=== PATIENT | male | born 1970 | race Caucasian/White ===

== ENCOUNTER 2019-09-05 13:22 | Inpatient (IN) | payer MEDICAID ==
[~2019-09-05] VITALS: Ht 170.2 cm; Wt 49.0 kg
[2019-09-05 14:18] VITALS: BP_SYST 122
[2019-09-05] MEDS ORDERED: ONDANSETRON HCL 4 MG/2 ML VIAL IVP ONE ×2 (15:30→17:15)
[2019-09-05] MEDS ORDERED: MORPHINE 4 MG/ML INJ. SYRINGE IVP ONE ×2 (15:30→17:15)
[2019-09-05 15:59] LABS: BASOPHILS % (AUTO) 0.5 % (0.0-2.0); EOSINOPHILS # (AUTO) 0.1 K/uL (0.0-0.4); EOSINOPHILS % (AUTO) 1.3 % (0.0-4.0); HEMATOCRIT 43.5 % (36-54); HEMOGLOBIN 14.7 g/dL (14.0-18.0); LYMPHOCYTES # (AUTO) 1.1 K/uL (1.0-5.5); LYMPHOCYTES % (AUTO) 13.1 % (20.5-51.5); MEAN CORPUSCULAR HEMOGLOBIN 28 pg (27-31); MEAN CORPUSCULAR HGB CONC 34 % (32-36); MEAN CORPUSCULAR VOLUME 84 fL (79.0-98.0); MONOCYTES # (AUTO) 0.4 K/uL (0.0-1.0); MONOCYTES % (AUTO) 4.4 % (1.7-9.3); NEUTROPHILS % (AUTO) 80.7 % (40.0-70.0); PLATELET COUNT (AUTO) 241 K/uL (130-430); RED BLOOD CELL COUNT(AUTO) 5.19 MIL/uL (4.2-6.2); RED CELL DISTRIBUTION WIDTH 14.7 % (9.0-15.0); WHITE BLOOD COUNT (AUTO) 8.7 K/uL (4.8-10.8)
[2019-09-05 16:15] LABS: CREATININE 0.87 mg/dL (0.55-1.30); POTASSIUM 3.9 mmol/L (3.5-5.1)
[2019-09-05 16:17] LABS: INR 1.1 (0.80-1.20); PROTHROMBIN TIME 10.8 SECS (9.5-12.5)
[2019-09-05 16:22] LABS: ALBUMIN 3.9 g/dL (3.4-4.8); TOTAL BILIRUBIN 0.5 mg/dL (0.0-1.0)
--- NOTE | 2019-09-05 17:00 | NUR ---
EKG performed at by [facility]. Physician given copy of EKG for review.
--- NOTE | 2019-09-05 17:00 | NUR ---
20 gauge angiocath placed to R AC. Use of asceptic technique. Opsite placed over site. Blood return noted. Blood for lab drawn from site. Flushed with 10 cc of normal saline. No evidence of infiltration noted. Patient tolerated well.
--- NOTE | 2019-09-05 17:04 | NUR ---
Patient to ER bed 03 to gown for evaluation. Side rails up.
--- NOTE | 2019-09-05 17:10 | NUR ---
PT CAME FOR INGUINAL HERNIA, L GROIN SWELLING PAIN 10/10
--- NOTE | 2019-09-05 18:35 | NUR ---
PT AU CATHETER REPLACED WITH NEW CATHETER.
--- NOTE | 2019-09-05 18:35 | NUR ---
REPORT TO JUN SCHNEIDER
[2019-09-05] MEDS ORDERED: LR 1,000 ML IV.SOLN IV ONE (19:25)
[2019-09-05] MEDS ORDERED: BUPIVACAINE /EPINEPHRINE/PF 0.25% 30 ML VIAL INJ ONE (19:25)
[2019-09-05] MEDS ORDERED: fentaNYL CITRATE/PF 100 MCG/2 ML AMP IVP ONE (19:25)
[2019-09-05] MEDS ORDERED: MIDAZOLAM HCL 5 MG/5 ML VIAL IVP ONE (19:25)
[2019-09-05] MEDS ORDERED: PROPOFOL 200MG/ 20ML VIAL (DIPRIVAN) IV ONE (19:25)
[2019-09-05] MEDS ORDERED: CEFAZOLIN 2 GM IVPB PREMIX 50 ML IV ONE (19:25)
[2019-09-05] MEDS ORDERED: GLYCOPYRROLATE 0.2 MG/ML VIAL IJ ONE (19:25)
[2019-09-05] MEDS ORDERED: ROCURONIUM BROMIDE 10 MG/ML (ZEMURON) IV ONE (19:25)
[2019-09-05] MEDS ORDERED: NEOSTIGMINE METHYLSULFATE 1 MG/ML, 10 ML VIAL IVP ONE (19:25)
[2019-09-05] MEDS ORDERED: SEVOFLURANE 15 MIN GAS INH ONE (19:25)
--- NOTE | 2019-09-05 19:30 | NUR ---
Lisandro, son, states he cannot find the medication list and will be bringing another copy of the medication list tomorrow morning.
--- NOTE | 2019-09-05 19:35 | NUR ---
family left contact information: Myah Garsia, daughter in law Stephanie, daughter
[2019-09-05 20:09] LABS: BILIRUBIN,URINE NEGATIVE (NEGATIVE); BLOOD, URINE 3+ (NEGATIVE); CLARITY/URINE TURBID (CLEAR); COLOR,URINE BROWN (YELLOW); GLUCOSE,URINE NEGATIVE (NEGATIVE); KETONES,URINE TRACE (NEGATIVE); LEUKOCYTE ESTERASE ,URINE TRACE (NEGATIVE); NITRITE, URINE POSITIVE (NEGATIVE); PROTEIN URINE 3+ (NEGATIVE)
--- NOTE | 2019-09-05 20:19 | NUR ---
Dr. Petit at bedside.
[2019-09-05 20:20] LABS: BACTERIA,URINE FEW /HPF (None Seen); RBC,URINE >100 /HPF (0-3); WBC,URINE 20-50 /HPF (0-3)
[2019-09-05 20:21] LABS: MUCUS,URINE None Seen /LPF (None Seen); URINE AMORPHOUS URATE 2+ /HPF (None Seen)
[2019-09-05] MEDS ORDERED: D5LR 1,000 ML IV ONE (20:30)
[2019-09-05] MEDS ORDERED: ONDANSETRON HCL 4 MG/2 ML VIAL IVP PRN (20:30)
[2019-09-05] MEDS ORDERED: ACETAMINOPHEN 325 MG TABLET PO PRN (20:45)
[2019-09-05] MEDS ORDERED: MORPHINE 4 MG/ML INJ. SYRINGE IVP PRN (20:45)
[2019-09-05] MEDS ORDERED: ACETAMINOPHEN 650 MG SUPP.RECT RC PRN (20:45)
--- NOTE | 2019-09-05 20:58 | NUR ---
ADMIT NOTE Received pt from ER to the floor with a diagnosis of incarcerated hernia. Admission process initiated. patient oriented to pain management, safety and call light-pt is aphasic.
--- NOTE | 2019-09-05 21:00 | NUR ---
Patient will be admitted to care of RN. Admitted to Tele unit. Will go to room 109A. Belongings list completed. Complete and up to date summary report printed. SBAR report to be given at bedside with opportunity for questions.
[2019-09-05 21:14] VITALS: BP_SYST 149
--- NOTE | 2019-09-05 21:15 | NUR ---
INITIAL NOTE PATIENT IS LAYING IN BED AND STABLE. NO S/S OF RESPIRATORY DISTRESS NOTED. PATIENT WAS UNSUCCESSFUL IN DEMONSTRATING USAGE OF CALL LIGHT AT THIS TIME. WILL CONTINUE TO MONITOR. PLAN OF CARE WAS DISCUSSED WITH PATIENT AT THIS TIME. PATIENT IS REORIENTED AT THIS TIME. BED IS LOCKED, ALARMED, AND AT THE LOWEST POSITION. FALL, SAFETY, ASPIRATION, AND RESPIRATORY PRECAUTIONS WILL BE IN PLACE THROUGHOUT THE SHIFT.
--- NOTE | 2019-09-05 21:25 | NUR ---
Received a call from Dr Petit: Dr Petit wants to know the result of 2nd troponin result, and ordered to repeat EKG stat. To call him of results.
--- NOTE | 2019-09-05 21:42 | NUR ---
Call placed to Dr. Petit: Relayed result of 2nd troponin which is negative, and also result of second EKG. No new order.
[2019-09-05] MEDS ORDERED: PIPERACILLIN/TAZO 3.375 GM in NS 50 ML IV SCH (22:00)
--- NOTE | 2019-09-05 22:21 | NUR ---
PAGE DR. ESPINOZA FOR CONSULT, SPOKE
[2019-09-05] MEDS ORDERED: PIPERACILLIN/TAZOBACTAM 3.375 GM/VIAL (ZOSYN) IV ONE (22:37)
--- NOTE | 2019-09-05 22:50 | NUR ---
DR. ESPINOZA CALL BACK- REPORT TO CT AP-RESULT AND CBC, CMP. MD WILL SEE PT TOMORROW, NO ORDER.
--- NOTE | 2019-09-05 22:56 | NUR ---
CONSULT CALLED FOR DR. SAAVEDRA, SPOKE TO
--- NOTE | 2019-09-05 23:15 | NUR ---
ROUNDING PATIENT IS LAYING IN BED AND WATCHING TV. PATIENT IS STABLE. NO S/S OF RESPIRATORY DISTRESS NOTED. CALL LIGHT IN REACH. BED IS LOCKED, ALARMED, AND AT THE LOWEST POSITION. WILL CONTINUE TO MONITOR.
[2019-09-06 00:05] VITALS: BP_SYST 121
--- NOTE | 2019-09-06 03:01 | NUR ---
ROUNDING PATIENT IS SLEEPING IN BED AND STABLE. NO S/S OF RESPIRATORY DISTRESS NOTED. CALL LIGHT IN REACH. BED IS LOCKED, ALARMED, AND AT THE LOWEST POSITION. WILL CONTINUE TO MONITOR.
--- NOTE | 2019-09-06 05:01 | NUR ---
ROUNDING PATIENT IS SLEEPING IN BED. NO S/S OF RESPIRATORY DISTRESS. CALL LIGHT IN REACH. BED IS LOCKED, ALARMED, AND AT THE LOWEST POSITION. WILL CONTINUE TO MONITOR.
--- NOTE | 2019-09-06 06:30 | NUR ---
CLOSING NOTES PATIENT IS STABLE AND LAYING IN BED. NO S/S OF RESPIRATORY DISTRESS NOTED. CALL LIGHT IN REACH. BED IS LOCKED, ALARMED, AND AT THE LOWEST POSITION. FALL, SAFETY, ASPIRATION, AND RESPIRATORY PRECAUTIONS HAS BEEN IN PLACE THROUGHOUT THE SHIFT. WILL CONTINUE TO MONITOR UNTIL REPORT IS GIVEN TO AM NURSE BY BEDSIDE.
--- NOTE | 2019-09-06 07:00 | NUR ---
FAMILY MEMBER CALLED REGARDING MEDICATION RECONC
--- NOTE | 2019-09-06 07:03 | NUR ---
Nutrition Update Jeovanny Scale 14 noted. Pt admitted for Incarcerated Hernia Diet: NPO BMI: 16.9 kg/m2 RD to follow per nutrition care standards.
[2019-09-06] MEDS ORDERED: LIP40 PO (07:07)
[2019-09-06] MEDS ORDERED: LISI-600 PO (07:07)
[2019-09-06] MEDS ORDERED: MIRT15TA7 PO (07:07)
--- NOTE | 2019-09-06 07:35 | NUR ---
OPENING NOTE Patient resting in the bed with eyes closed. No acute distress. Skin warm and dry to touch. IV intact to RAC, no redness, no swelling, no drainage. On D5 LR at 100ml/hr, infusing well. F/C intact, drain gravity with sarath urine. Safety measure maintained. Call light within reached. Bed locked in low position, side rails up, bed alarm on. Will continue to monitor.
[2019-09-06 08:21] LABS: ANION GAP 4 (5-15); CALCIUM 8.3 mg/dL (8.4-11.0); CHLORIDE 103 mmol/L (98-107); CREATININE 0.86 mg/dL (0.55-1.30); GLUCOSE 101 mg/dL (70-99); POTASSIUM 3.8 mmol/L (3.5-5.1); SODIUM SERUM 138 mmol/L (136-145); UREA NITROGEN, BLOOD 21 mg/dL (8-21)
[2019-09-06 08:28] LABS: BASOPHILS % (AUTO) 0.8 % (0.0-2.0); EOSINOPHILS # (AUTO) 0.3 K/uL (0.0-0.4); HEMATOCRIT 40.6 % (36-54); HEMOGLOBIN 13.7 g/dL (14.0-18.0); LYMPHOCYTES # (AUTO) 1.3 K/uL (1.0-5.5); LYMPHOCYTES % (AUTO) 21.2 % (20.5-51.5); MEAN CORPUSCULAR HEMOGLOBIN 28 pg (27-31); MEAN CORPUSCULAR HGB CONC 34 % (32-36); MEAN CORPUSCULAR VOLUME 84 fL (79.0-98.0); MONOCYTES # (AUTO) 0.3 K/uL (0.0-1.0); MONOCYTES % (AUTO) 5.2 % (1.7-9.3); NEUTROPHILS # (AUTO) 4.1 K/uL (1.8-7.7); NEUTROPHILS % (AUTO) 67.8 % (40.0-70.0); PLATELET COUNT (AUTO) 187 K/uL (130-430); RED BLOOD CELL COUNT(AUTO) 4.83 MIL/uL (4.2-6.2); RED CELL DISTRIBUTION WIDTH 14.9 % (9.0-15.0)
[2019-09-06 08:32] LABS: GFR AFRICAN AMERICAN 121 mL/min (>90)
--- NOTE | 2019-09-06 08:33 | NUR ---
2D ECHO DOING AT BEDSIDE AT THIS TIME.
[2019-09-06 08:35] LABS: WHITE BLOOD COUNT (AUTO) 6.1 K/uL (4.8-10.8)
[2019-09-06 08:36] LABS: ALANINE AMINOTRANSFERASE 16 U/L (12-78); ALBUMIN 3.3 g/dL (3.4-4.8); ASPARTATE AMINOTRANSFERASE 7 U/L (10-37); FREE T4 (FREE THYROXINE) 1.2 ng/dl (0.8-1.5); THYROID STIMULATING HORMONE 1.74 uIu/mL (0.36-3.74); TOTAL BILIRUBIN 0.6 mg/dL (0.0-1.0)
[2019-09-06 08:55] LABS: CHOLESTEROL 93 mg/dL (<200); HDL CHOLESTEROL 34 mg/dL (>45); LDL CHOLESTEROL 54 mg/dL (<100); TRIGLYCERIDES 44 mg/dL (30-150)
--- NOTE | 2019-09-06 09:56 | NUR ---
SEEN AND EXAMINED BY SHARRI BECKWITH Informed to Dr. Cuba, patient on NPO status IVF was ordered 1L only. Per Bereket will order IVF.
[2019-09-06 10:00] LABS: ERYTHROCYTE SEDIMENTATION RATE 17 MM/HR (0-15)
--- NOTE | 2019-09-06 10:48 | NUR ---
SEEN AND EXAMINED BY PRETTY BALDWIN Informed to Dr. Mattson, Dr. Cuba (marine pilot) clear the patient for surgery. Per Dr. Mattson, the patient need the surgery but no set up the time yet.
[2019-09-06] MEDS: D5/0.45 NS 1,000 ML IV SCH (10:54)
[2019-09-06 11:11] VITALS: BP_SYST 134
[2019-09-06 12:19] VITALS: BP_SYST 128
--- NOTE | 2019-09-06 12:25 | NUR ---
ROUND Patient resting in the bed. No acute distress. IV intact, IVF infusing well. Safety measure maintained. Call light within reached. Bed locked in low position, side rails up, bed alarm on. Continue to monitor.
--- NOTE | 2019-09-06 12:48 | NUR ---
PHYSICAL THERAPY ORDER HAS BEEN RECEIVED AND THE CHART REVIEWED. RN AND CHART NOTES INDICATE POSSIBLE SURGICAL PROCEDURE. EVALUATION WILL BE HELD UNTIL TOMORROW TO DETERMINE IF THE PATIENT WILL HAVE SURGERY. PLAN: FOLLOW UP IN THE MORNING.
--- NOTE | 2019-09-06 14:02 | NUR ---
SEEN AND EXAMINED BY YOLANDA GLASER WITH ORDER RECEIVED.
--- NOTE | 2019-09-06 15:09 | NUR ---
SS NOTE/ATTEMPT: DOORMAKER phoned pt's son Lisandro Hayes @ [phone] and left a message for a call back. Addendum: 09/06/19 at 1610 by Minor Ramos DOORMAKER Collateral: DOORMAKER spoke with daughter Amada Hayes @ [phone]. Per Amada pt was originally at a SNF in [place] but decided to move him back home in August and changed his [facility] to [facility]. Per dtr, pt had a stroke 5 years ago and became dependent with ADL's after that. Pt currently lives with daughter, and son in a one-salvatore home with 2 steps to get to the front door. Pt utilizes a hospital bed and a wheelchair as his DME. Per dtr, pt is unable to qualify for SSI or IHSS due to the loss of his green card. Dtr prefers for pt to go back to a SNF closer to [place]; SNF list and Outpt Clinic list provided. SS will remain available when needed.
[2019-09-06 16:00] VITALS: BP_SYST 128
--- NOTE | 2019-09-06 16:39 | NUR ---
CECILIA CALLED PATIENT'S DAUGHTER EMMANUEL AT [phone] AND LEFT MESSAGE TO RETURN THE CALL AT [phone]
--- NOTE | 2019-09-06 16:45 | NUR ---
CHG BATH DONE
--- NOTE | 2019-09-06 17:17 | NUR ---
RECEIVED THE CALL FROM PATIENT'S [id number], JU Glasgow, surgeon told the patient's daughter (EMMANUEL) will do the surgery around 5-6pm. However, the son is the one will give consent and on the way to hospital, will be arrived 30-60min. Communicated with charge nurse, Brook and waited the son.
--- NOTE | 2019-09-06 17:50 | NUR ---
PATIENT'S SON (CHEIKH) CAME Explained the consent needs to be signed before surgery, verbally understanding. The son will sign the consent before the surgery.
--- NOTE | 2019-09-06 18:50 | NUR ---
PATIENT LEFT FOR SURGERY VIA BED IN STABLE CONDITION.
--- NOTE | 2019-09-06 19:00 | NUR ---
REPORT RECEIVED FROM WYATT ERWIN. PATIENT IS NOT AT BEDSIDE AT THIS TIME. REPORT RECEIVED BY WYATT ERWIN.
[2019-09-06] MEDS ORDERED: POLYMYXIN 500,000/BACIT.10,000 UNITS in NS IRR 1 L IR ONE (19:42)
[2019-09-06] MEDS ORDERED: ONDANSETRON HCL 4 MG/2 ML VIAL IVP PRN (20:00)
[2019-09-06] MEDS ORDERED: fentaNYL CITRATE/PF 100 MCG/2 ML AMP IVP PRN ×2 (20:00)
[2019-09-06] MEDS ORDERED: BUPIVACAINE LIPOSOME/PF 266 MG/20 ML VIAL INFIL ONE (20:11)
[2019-09-06 22:34] VITALS: BP_SYST 128
[2019-09-06] MEDS ORDERED: fentaNYL CITRATE/PF 100 MCG/2 ML AMP ONE (23:00)
--- NOTE | 2019-09-06 23:11 | NUR ---
INITIAL/PATIENT ARRIVED ON THE FLOOR REPORT GIVEN BY WYATT SOTOMAYOR. PATIENT IS STABLE. NO S/S OF RESPIRATORY DISTRESS NOTED. FAMILY IS BY BEDSIDE. PLAN OF CARE DISCUSSED WITH FAMILY AND PATIENT AT THIS TIME. PATIENT UNSUCCESSFULLY DEMONSTRATES USAGE OF CALL LIGHT AT THIS TIME. WILL CONTINUE TO MONITOR FREQUENTLY. PATIENT VERBALIZES NO PAIN. FALL, SAFETY, ASPIRATION, AND RESPIRATORY PRECAUTIONS WILL BE IN PLACE THROUGHOUT THE SHIFT.
[2019-09-07] MEDS: D5/0.45 NS 1,000 ML IV SCH ×3 (00:20→18:17)
[2019-09-07 00:31] VITALS: BP_SYST 128
--- NOTE | 2019-09-07 01:02 | NUR ---
ROUNDING PATIENT IS SLEEPING IN BED. PATIENT IS STABLE. NO S/S OF RESPIRATORY DISTRESS NOTED. CALL LIGHT IN REACH. BED IS LOCKED, ALARMED, AND AT THE LOWEST POSITION. WILL CONTINUE TO MONITOR.
--- NOTE | 2019-09-07 02:58 | NUR ---
ROUNDING PATIENT IS SLEEPING IN BED. NO S/S OF RESPIRATORY DISTRESS NOTED. CALL LIGHT IN REACH. BED IS LOCKED, ALARMED, AND AT THE LOWEST POSITION. WILL CONTINUE TO MONITOR.
--- NOTE | 2019-09-07 05:00 | NUR ---
INCENTIVE SPIROMETER PATIENT EDUCATED ON INCENTIVE SPIROMETER AT THIS TIME. PATIENT WAS ABLE TO USE IT 10 TIMES. PATIENT IS CONFUSED. WILL CONTINUE TO EDUCATE THROUGHOUT THE SHIFT. Addendum: 09/07/19 at 0634 by Trixie Barney RN PATIENT IS MORE AWAKE AND ALERT FOR EDUCATION ON INCENTIVE SPIROMETER. HOWEVER, EDUCATION WAS NOT SUCCESSFUL. WILL CONTINUE TO EDUCATE THROUGHOUT THE SHIFT.
--- NOTE | 2019-09-07 06:31 | NUR ---
CLOSING NOTES RE-EDUCATED PATIENT ON THE INCENTIVE SPIROMETER. PATIENT UNABLE TO DEMONSTRATE USAGE WITHOUT ASSIST. ASSISTED PATIENT TO USE 10 TIMES. PATIENT IS OTHERWISE STABLE AND IN BED. NO S/S OF RESPIRATORY DISTRESS NOTED. CALL LIGHT IN REACH. BED IS LOCKED, ALARMED, AND AT THE LOWEST POSITION. FALL, SAFETY, ASPIRATION, AND RESPIRATORY PRECAUTIONS HAS BEEN PLACED THROUGHOUT THE SHIFT. WILL CONTINUE TO MONITOR UNTIL REPORT IS GIVEN TO AM NURSE BY BEDSIDE.
--- NOTE | 2019-09-07 07:24 | NUR ---
PHYSICAL THERAPY: AWAITING NEW MD ORDER TO START PHYSICAL THERAPY SINCE PATIENT HAD SURGERY YESTERDAY.
--- NOTE | 2019-09-07 07:30 | NUR ---
AM ROUNDS: RECEIVED PATIENT LYING ON THE BED.O2 2L/NC.IV FLUIDS RUNNING AT RIGHT AC,CLEAN AND DRY. MID ABDOMINAL DRESSING INTACT.AU IN PLACE,KALI URINE. CALL LIGHT WITH IN REACH. BED LOCKED AT LOWEST POSITION. NO DISTRESS.
[2019-09-07 08:33] VITALS: BP_SYST 116
[2019-09-07] MEDS: SENNOSIDES/DOCUSATE SODIUM 1 TAB TABLET(SENOKOT-S) PO SCH ×2 (08:34→21:56)
[2019-09-07] MEDS: MIRTAZAPINE 15 MG TABLET PO SCH (08:34)
[2019-09-07] MEDS: ATORVASTATIN 20 MG TABLET PO SCH (08:34)
[2019-09-07] MEDS: LISINOPRIL 20 MG TABLET PO SCH (08:35)
[2019-09-07 12:30] VITALS: BP_SYST 120
--- NOTE | 2019-09-07 12:30 | NUR ---
RN ROUNDS: FULL LIQUID DIET SERVED.ATE HALF OF THE TRAY. WELL TOLERATED. WITH MINIMAL ASSISTANCE. NO DISTRESS.
--- NOTE | 2019-09-07 14:00 | NUR ---
RN ROUNDS: PATIENT RESTING. HAD SOME FULL LIQUID DIET. ASPIRATION PRECAUTION RENDERED. STABLE.
--- NOTE | 2019-09-07 15:13 | NUR ---
Nutrition Assessment (short note d/t high patient load) A - RD reviewed pertinent nutrition-related info via EMR (physician notes/nursing notes/labs/meds/nursing care trends/care activity). Admission Dx: Incarcerated hernia PMH: CVA, L-sided paralysis per physician notes Current Diet Order/Nutrition Support: Full liquid x0 days Ht: 67"/5'7" Wt: 108#/49 kg IBW: 148#/67 kg %IBW: 73% UBW: N/A %UBW: N/A BMI: 16.9 kg/m2 Pertinent Medical Info: Pt is POD 1 s/p L herniorrhaphy 09/06/19 per EMR Subjective Info: Pt seen high risk d/t BMI less than 18.5 kg/m2. Pt was seen resting in bed, +aphasic w/ breakfast tray less than 50% eaten -- 100% of pudding eaten, 25% of cream of wheat, and 100% of Ensure Enlive ONS. No family present at bedside. Per EMR, PO intake average of 25% x2 meals. Pt is not yet meeting optimal nutritional needs. ESTIMATED NUTRITIONAL NEEDS CALORIES/DAY: 9002-2799 kcal/day (30-35 kcal/kg Adj IBW for surgical healing) PROTEIN/DAY: 65-81 gm/day (1.2-1.5 gm/kg Adj IBW for surgical healing) FLUID/DAY: 1.6-1.9 L/day (1 ml/kcal/day for maintenance) D - Increased nutritional needs related to metabolic demands as evidenced by estimated nutritional requirements for surgical healing. I - Recommend full liquid diet w/ Ensure Enlive TID and Sundar BID (ONS w/ modular provides 1230 kcal/day, 65 gm protein/day) M - Monitor advancement of diet, appetite, and PO intakes w/ goal of pt meeting at least 75% of estimated nutritional needs, labs trending WNL, normal GI function, and skin integrity/wt maintenance E - High risk; F/U within 2-3 days Addendum: 09/07/19 at [address] CORRECTION: Current Diet Order/Nutrition Support: Full liquid, nectar thick liquid x0 days * Recommend full liquid, nectar thick liquid diet w/ Ensure Enlive TID and Sundar BID (ONS w/ modular provides 1230 kcal/day, 65 gm protein/day) LP, RD
--- NOTE | 2019-09-07 15:20 | NUR ---
Dietitian Recommendations * Recommend full liquid diet w/ Ensure Enlive TID and Sundar BID (ONS w/ modular provides 1230 kcal/day, 65 gm protein/day) LP, RD Please refer to Nutrition Assessment for details. Addendum: 09/07/19 at [address] CORRECTION: * Recommend full liquid, nectar thick liquid diet w/ Ensure Enlive TID and Sundar BID (ONS w/ modular provides 1230 kcal/day, 65 gm protein/day) LP, RD
--- NOTE | 2019-09-07 16:00 | NUR ---
RN ROUNDS: RESTING. NO COMPLAINED MADE. ABDOMEN DRESSING INTACT.
[2019-09-07 17:37] VITALS: BP_SYST 122
--- NOTE | 2019-09-07 18:39 | NUR ---
END OF SHIFT: DR ESPINOZA CAME AND SAW PATIENT IN THE ROOM. NO NEW ORDERS MADE. PATIENT HAD A GOOD APPETITE THIS EVENING. TOLERATED FULL LIQUID DIET.ABDOMEN DRESSING INTACT.AU IN PLACE. CALL LIGHT WITH IN REACH. BED LOCKED AT LOWEST POSITION. DENIES ANY PAIN. CONTINUE TO MONITOR.
--- NOTE | 2019-09-07 19:30 | NUR ---
Opening Note Received patient resting in bed, awake, alert and aphasic. IVF infusing via IV on RAC, abdominal surgical dressing site is CDI. Farr catheter drainage bag to gravity. Bed is locked in lowest position, bed alarm on and call light w/in reach.
[2019-09-07 20:00] VITALS: BP_SYST 110
--- NOTE | 2019-09-07 21:56 | NUR ---
Medication Due medication given, Senokot. Medication was crushed and mixed with applesauce and patient he also had a drink of thickened water. Patient followed directions and swallowed w/out difficulty.
--- NOTE | 2019-09-07 22:20 | NUR ---
IV alarm Assessed IV alarm and patient pulled on gauze and removed IV. Catheter tip visualized and no active bleeding noted. Will start new IV.
[2019-09-07] MEDS: MORPHINE 2 MG/ML INJ. SYRINGE IVP PRN (23:03)
--- NOTE | 2019-09-07 23:09 | NUR ---
IV PLACEMENT: New IV # 22 gauge angiocath placed to RFA . Use of asceptic technique, opsite placed over site. Blood return noted and flushed with 10 cc of normal saline. Patient tolerated.
--- NOTE | 2019-09-07 23:11 | NUR ---
Pain medication Patient moaning, showing signs of pain. When asked if has pain he said yes, moderate pain to abdomen. Administered morphine for moderate pain as ordered. Will monitor.
--- NOTE | 2019-09-08 00:10 | NUR ---
Resting Patient is resting, w/ eyes closed. Nonlabored breathing and no s/sx of distress. Patient is not moaning or grimacing. IVF infusing well. Safety precautions in place.
[2019-09-08 00:39] VITALS: BP_SYST 110
--- NOTE | 2019-09-08 02:15 | NUR ---
RN rounds Patient is resting, w/ eyes closed. Nonlabored breathing and no s/sx of distress. IVF infusing well. Safety precautions in place and call light w/in reach.
--- NOTE | 2019-09-08 04:30 | NUR ---
RN rounds Patient is sleeping. Symmetrical rise and fall of chest, nonlabored breathing. IVF infusing well. Safety precautions in place and call light w/in reach.
[2019-09-08 08:00] VITALS: BP_SYST 113
[2019-09-08] MEDS: ATORVASTATIN 20 MG TABLET PO SCH (10:34)
[2019-09-08] MEDS: SENNOSIDES/DOCUSATE SODIUM 1 TAB TABLET(SENOKOT-S) PO SCH ×2 (10:34→21:00)
[2019-09-08] MEDS: MIRTAZAPINE 15 MG TABLET PO SCH (10:34)
[2019-09-08] MEDS: LISINOPRIL 20 MG TABLET PO SCH (10:35)
[2019-09-08 11:21] VITALS: BP_SYST 112
[2019-09-08] MEDS: D5/0.45 NS 1,000 ML IV SCH (13:31)
[2019-09-08 15:34] VITALS: BP_SYST 122
[2019-09-08] MEDS ORDERED: METOPROLOL TARTRATE 25 MG TABLET PO ONE (17:30)
--- NOTE | 2019-09-08 18:12 | NUR ---
S.T. SWALLOW EVAL SWALLOW EVAL COMPLETED. PT PRESENTS W/ MOD-SEV OROPHARYNGEAL DYSPHAGIA W/ IMPAIRED BOLUS MANIPULATION, DELAYED SWALLOW, AND COUGHING WITH AND WITHOUT P.O. PT IS AT HIGH RISK FOR ASPIRATION. REC: NPO. VFSS TOMORROW. NURSE KIRILL NOTIFIED. G8996 CM G8997 CM G8998 CM NOMS LEVEL 2
--- NOTE | 2019-09-08 19:30 | NUR ---
Opening Note Received patient resting in bed, awake, alert. No s/sx of distress. IVF infusing via IV on RAC, abdominal surgical dressing site is CDI. Farr catheter drainage bag to gravity. Bed is locked in lowest position, bed alarm on and call light w/in reach.
[2019-09-08 20:00] VITALS: BP_SYST 120
[2019-09-08] MEDS: METOPROLOL TARTRATE 25 MG TABLET PO SCH (21:00)
--- NOTE | 2019-09-08 21:37 | NUR ---
Paged Dr. Mattson Page Dr. Mattson to update and inform patient is NPO due to failed swallow eval.
[2019-09-08] MEDS: POLYETHYLENE GLYCOL 3350, 17 GM/ POWD.PACK PO SCH (21:56)
[2019-09-08] MEDS ORDERED: SODIUM PHOSPHATE,MONO-DIBASIC 133 ML ENEMA RC ONE (22:00)
--- NOTE | 2019-09-08 23:40 | NUR ---
Luciana Enema Explained procedure to patient and positioned to left side down, patient nodded head yes. Patient tolerated.
[2019-09-08 23:57] VITALS: BP_SYST 118
--- NOTE | 2019-09-09 00:25 | NUR ---
Elevated Heart Rate Called and notified Dr. Cuba that patient's heart rate has increased and sustaining in the 140's, highest was 163. Patient has been ordered NPO due to failed swallow eval. He provided medication order for Lopressor 5mg IVP once now and scheduled Q12hr.
[2019-09-09] MEDS ORDERED: METOPROLOL TARTRATE 5 MG/5 ML VIAL IVP ONE (00:30)
--- NOTE | 2019-09-09 00:37 | NUR ---
Lopressor IVP Administered Lopressor IVP as ordered, patient tolerating.
--- NOTE | 2019-09-09 01:10 | NUR ---
Patient care Patient had bowel movement, solid brown formed stool. He was provided with bed bath, mesfin-care and linen change.
--- NOTE | 2019-09-09 02:10 | NUR ---
RN rounds Patient is awake, he reports he wants to be changed, he had another bowel movement. Nurse social media assistant provided mesfin-care.
[2019-09-09] MEDS: MORPHINE 2 MG/ML INJ. SYRINGE IVP PRN (04:26)
[2019-09-09 07:22] LABS: BASOPHILS % (AUTO) 0.2 % (0.0-2.0); EOSINOPHILS # (AUTO) 0.1 K/uL (0.0-0.4); EOSINOPHILS % (AUTO) 0.5 % (0.0-4.0); HEMATOCRIT 33.7 % (36-54); HEMOGLOBIN 11.4 g/dL (14.0-18.0); LYMPHOCYTES # (AUTO) 1.2 K/uL (1.0-5.5); LYMPHOCYTES % (AUTO) 11.6 % (20.5-51.5); MEAN CORPUSCULAR HEMOGLOBIN 28 pg (27-31); MEAN CORPUSCULAR HGB CONC 34 % (32-36); MEAN CORPUSCULAR VOLUME 84 fL (79.0-98.0); MONOCYTES # (AUTO) 0.3 K/uL (0.0-1.0); MONOCYTES % (AUTO) 3.2 % (1.7-9.3); NEUTROPHILS # (AUTO) 9.1 K/uL (1.8-7.7); NEUTROPHILS % (AUTO) 84.5 % (40.0-70.0); PLATELET COUNT (AUTO) 222 K/uL (130-430); RED BLOOD CELL COUNT(AUTO) 4.03 MIL/uL (4.2-6.2); RED CELL DISTRIBUTION WIDTH 15.6 % (9.0-15.0); WHITE BLOOD COUNT (AUTO) 10.8 K/uL (4.8-10.8)
[2019-09-09 07:57] LABS: ALBUMIN 2.5 g/dL (3.4-4.8); CALCIUM 7.9 mg/dL (8.4-11.0); CREATININE 0.72 mg/dL (0.55-1.30); POTASSIUM 3.4 mmol/L (3.5-5.1); TOTAL BILIRUBIN 0.6 mg/dL (0.0-1.0)
[2019-09-09 08:00] VITALS: BP_SYST 96
[2019-09-09] MEDS: SENNOSIDES/DOCUSATE SODIUM 1 TAB TABLET(SENOKOT-S) PO SCH ×2 (09:00→21:00)
[2019-09-09] MEDS: MIRTAZAPINE 15 MG TABLET PO SCH (09:00)
[2019-09-09] MEDS: METOPROLOL TARTRATE 25 MG TABLET PO SCH ×2 (09:00→21:00)
[2019-09-09] MEDS: METOPROLOL TARTRATE 5 MG/5 ML VIAL IVP SCH ×2 (09:00→22:22)
[2019-09-09] MEDS: ATORVASTATIN 20 MG TABLET PO SCH (09:00)
[2019-09-09] MEDS: POLYETHYLENE GLYCOL 3350, 17 GM/ POWD.PACK PO SCH (09:00)
[2019-09-09 10:12] VITALS: BP_SYST 118
[2019-09-09] MEDS ORDERED: FAMOTIDINE 20 MG TABLET PO ONE (10:30)
[2019-09-09] MEDS ORDERED: POTASSIUM CHLORIDE 20 MEQ/PKT PACKET PO ONE (10:30)
--- NOTE | 2019-09-09 10:30 | NUR ---
[facility] CALLED TO INFORM PATIENT IS SCHEDUALED FOR VIDEO STUDY AROUND 13:30 - 14:00. patient daughter EMMANUEL [phone] WAS NOTIFIED AT 10:30.
[2019-09-09] MEDS ORDERED: ASPIRIN 81 MG TABLET(ECOTRIN) PO ONE (10:45)
--- NOTE | 2019-09-09 12:17 | NUR ---
Discharge Planning: DCP faxed patient referral to [facility], [facility], [facility], [facility], [facility] DCP to follow up. Addendum: 09/09/19 at 1516 by Jackie Stark DP [facility]:No beds available [facility]:can not take patient age and IV meds a issue [facility]:No beds available [facility]: [facility]:DCP lm for admissions
[2019-09-09 12:50] VITALS: BP_SYST 96
[2019-09-09] MEDS ORDERED: POTASSIUM CHLORIDE 40 MEQ, LIDOCAINE JECT 2% PF 100 MG 50 MG in NS 250 ML IV ONE (13:00)
[2019-09-09] MEDS ORDERED: BARIUM SULFATE 135 ML SUSP.RECON (E-Z-HD) PO ONE (13:21)
[2019-09-09] MEDS: D5LR 1,000 ML IV SCH ×2 (14:39→23:00)
--- NOTE | 2019-09-09 15:00 | NUR ---
S.T. VIDEOFLUOROSCOPIC SWALLOW STUDY (VFSS) VFSS COMPLETED. PT PRESENTS W/ MOD ORAL AND MOD-SEV PHARYNGEAL DYSPHAGIA W/ DECREASED COORDINATION FOR BOLUS MANIPULATION, POSTERIOR BOLUS LEAKAGE, MOD-SEV PHARYNGEAL RETENTION (VALLECULAR, PYRIFORM SINUS, AND PHARYNGEAL WALL). ASPIRATION NOTED ON THIN LIQUIDS. PT WAS VERY IMPULSIVE AND DID NOT FOLLOW COMMANDS. REC: PUREE DIET. NECTAR THICK LIQUIDS. FOLLOW SAFE SWALLOW GUIDELINES POSTED AT BEDSIDE. SLOW EATING. SMALL BITES/SIPS. PT'S DTR IN AGREEMENT W/ RESULTS AND REC. NURSE JOVITA NOTIFIED. G8996 CK G8997 CK G8998 CK NOMS LEVEL 4
[2019-09-09 16:49] VITALS: BP_SYST 109
[2019-09-09 20:00] VITALS: BP_SYST 98
--- NOTE | 2019-09-09 20:00 | NUR ---
CECILY.PT,S AU CATHETER D/CD PT GIVEN URINAL TO VOID . PT DEED COMFORAble . pt for passible discharge tommorrow . on sinus rthym .
[2019-09-09] MEDS: FAMOTIDINE 20 MG TABLET PO SCH (22:22)
[2019-09-10] VITALS: BP_SYST 112; BP_SYST 192
--- NOTE | 2019-09-10 | NUR ---
pt confortable . pt sleeping .vital sign stable . pt continue on iv d5lr at 100cc/hr .
--- NOTE | 2019-09-10 05:00 | NUR ---
pt stable . vitable sign stable . abdomen with glen . no c/o pain . iv infusing well .pt for possible discharge today.
--- NOTE | 2019-09-10 07:30 | NUR ---
OPENING NOTE PT RESTING IN BED. CHEST RISE AND FALL NOTED. NO ACUTE DISTRESS ORDERED. IV INTACT AND PATENT. NO SIGNS OF INFILTRATION. FLUIDS RUNNING ORDERED PER MD. TOLERATING WELL. FALL AND ASPIRATION PRECAUTIONS IN PLACE. ALL NEEDS MET. UPDATED PT ON CARE PLAN. CALL LIGHT IN REACH. CONTINUE TO MONITOR.
[2019-09-10 08:00] VITALS: BP_SYST 125
[2019-09-10] MEDS: POLYETHYLENE GLYCOL 3350, 17 GM/ POWD.PACK PO SCH (09:00)
[2019-09-10] MEDS: METOPROLOL TARTRATE 5 MG/5 ML VIAL IVP SCH (09:00)
[2019-09-10] MEDS: SENNOSIDES/DOCUSATE SODIUM 1 TAB TABLET(SENOKOT-S) PO SCH ×2 (09:00→22:15)
[2019-09-10] MEDS: D5LR 1,000 ML IV SCH (09:00)
[2019-09-10] MEDS: ASPIRIN 81 MG TABLET(ECOTRIN) PO SCH (09:40)
[2019-09-10] MEDS: MIRTAZAPINE 15 MG TABLET PO SCH (09:41)
[2019-09-10] MEDS: METOPROLOL TARTRATE 25 MG TABLET PO SCH ×2 (09:41→22:15)
[2019-09-10] MEDS: FAMOTIDINE 20 MG TABLET PO SCH ×2 (09:41→22:15)
[2019-09-10] MEDS: ATORVASTATIN 20 MG TABLET PO SCH (09:41)
--- NOTE | 2019-09-10 09:41 | NUR ---
ROUTINE MEDS MEDS ADMINISTERED ORDERED PER MD. TOLERATED WELL. EDUCATION GIVEN. NO ACUTE DISTRESS NOTED. FALL AND ASPIRATION PRECAUTIONS IN PLACE. ALL NEEDS MET. CALL LIGHT IN REACH. CONTINUE TO MONITOR.
--- NOTE | 2019-09-10 10:00 | NUR ---
SEEN AND EXAMINED BY REPORTED TO MD PATIENT IS NOW ON PUREE DIET AND ABLE TO TAKE MEDS. WILL D/C CYNTHIA GOINS
[2019-09-10 12:38] VITALS: BP_SYST 124
--- NOTE | 2019-09-10 13:00 | NUR ---
NOTE INCONTINENT CARE PROVIDED, RUDY WELL. REPOSITIONED FOR COMFORT. ALL NEEDS ANTICIPATED AND MET. CALL LIGHT IN REACH. CONT TO MONITOR
--- NOTE | 2019-09-10 15:00 | NUR ---
SEEN AND EXAMINED BY AT BEDSIDE REPORTED TO MD, PATIENT VOIDED DURING SHIFT BUT HAS A LOW PO FLUID INTAKE MD WILL CHANGE IVF ORDERS
[2019-09-10] MEDS ORDERED: PIPERACILLIN/TAZO 3.375/DEX-IS 50 ML IV ONE (15:15)
[2019-09-10] MEDS ORDERED: POTASSIUM CHLORIDE 40 MEQ, LIDOCAINE JECT 2% PF 100 MG 50 MG in NS 250 ML IV ONE (15:15)
--- NOTE | 2019-09-10 16:30 | NUR ---
SPOKE TO PHARMACY INQUIRIED ABOUT 1515 ZOSYN DOSE, PER PHARMACY, MEDICATION NOT READY YET. WILL BE MIXED AND BROUGHT OUT. AWAITING ARRIVAL.
[2019-09-10 16:55] VITALS: BP_SYST 126
--- NOTE | 2019-09-10 17:00 | NUR ---
PT HAD BM. INCONTINENCE AND PERINEAL CARE PROVIDED. LINENS AND GOWN CHANGED. REPOSITIONED PT WITH PILLOWS. HOB ELEVATED. SET UP FOR DINNER.
--- NOTE | 2019-09-10 17:29 | NUR ---
Nutrition F/U A - RD reviewed pertinent nutrition-related info via EMR (physician notes/nursing notes/labs/meds/nursing care trends/care activity). Admission Dx: Incarcerated hernia PMH: CVA, L-sided paralysis per physician notes Current Diet Order/Nutrition Support: Pureed, nectar thick liquids x1 days Ht: 67"/5'7" Wt: 108#/49 kg IBW: 148#/67 kg %IBW: 73% UBW: N/A %UBW: N/A BMI: 16.9 kg/m2 Pertinent Medical Info: Pt is POD 4 s/p L herniorrhaphy 09/06/19 per EMR Subjective Info: Pt was seen resting in bed, +non-verbal, but was able to nod yes or no to simple questions. Pt reported lack of appetite. No family present at bedside. Pt had a ST VFSS completed 09/09/19; ST rec for puree diet, nectar thick liquids. Per EMR, PO intake average of 50% x4 meals. Pt is not yet meeting optimal nutritional needs. ESTIMATED NUTRITIONAL NEEDS CALORIES/DAY: 8936-0937 kcal/day (30-35 kcal/kg Adj IBW for surgical healing) PROTEIN/DAY: 65-81 gm/day (1.2-1.5 gm/kg Adj IBW for surgical healing) FLUID/DAY: 1.6-1.9 L/day (1 ml/kcal/day for maintenance) D - Increased nutritional needs related to metabolic demands as evidenced by estimated nutritional requirements for surgical healing. I - Recommend puree diet w/ Ensure Enlive TID and Sundar BID (ONS w/ modular provides 1230 kcal/day, 65 gm protein/day) M - Monitor advancement of diet, appetite, and PO intakes w/ goal of pt meeting at least 75% of estimated nutritional needs, labs trending WNL, normal GI function, and skin integrity/wt maintenance E - High risk; F/U within 2-3 days
--- NOTE | 2019-09-10 17:32 | NUR ---
Dietitian Recommendations * Recommend puree diet w/ Ensure Enlive TID and Sundar BID (ONS w/ modular provides 1230 kcal/day, 65 gm protein/day) LP, RD Please refer to Nutrition F/U for details.
--- NOTE | 2019-09-10 17:58 | NUR ---
ZOSYN ADMINISTERED. TOLERATED WELL. EDUCATION GIVEN. ZOSYN 1800 DOSE HELD DUE TO JUST ADMINISTERED EARLIER DOSE.
[2019-09-10] MEDS: PIPERACILLIN/TAZO 3.375/DEX-IS 50 ML IV SCH (18:00)
[2019-09-10] MEDS: LR 1,000 ML IV SCH (18:32)
--- NOTE | 2019-09-10 18:45 | NUR ---
CLOSING NOTE PATIENT IS AWAKE IN BED. STABLE. NO S/SX PAIN. NO ACUTE DISTRESS. NO SOB. RESPIRATION EVEN AND UNLABORED. SKIN WARM AND DRY TO TOUCH. IV INTACT AND PATENT. KEPT CLEAN AND DRY. BED IN LOW AND LOCKED POSITION. SIDERAIL UPX3. BED ALARM ON. ALL NEEDS MET. CONT CONTACT PRECAUTION. CALL LIGHT IN REACH. WILL ENDORSE TO ONCOMING SHIFT.
[2019-09-10 20:00] VITALS: BP_SYST 140
--- NOTE | 2019-09-10 21:00 | NUR ---
RNIA .PT HAS DAINA ON . PT VOIDING WELL . PT ON ST WITH NO ECTOPIC BEAT , PT HAS MDRO IN URINE .PT HAS 2 LITER. ON IV LR AT 75CC/HR . BP 170/87.MEDICATION GIVEN . ABDOMINAL STAPLE INTACT.
[2019-09-11] VITALS: BP_SYST 192
--- NOTE | 2019-09-11 02:15 | NUR ---
PT STARED THAT HE IS IN PAIN .BP162/118.PT GIVEN MORPHINE SULFATE 4MG IVP PT HEART RATE 150TO 170.WILL MONITOR PT,S HEART RATE ,
--- NOTE | 2019-09-11 03:40 | NUR ---
HEART RATE DOWN TO 115/MIN , BP168/118. CALLED ORDERED LOPRESSOR TO BE GIVEN . PT GIVEN PO LOPRESSOR . WILL CONTINUE TO MONITOR PT .
--- NOTE | 2019-09-11 03:52 | NUR ---
page dr. rosales, report to md pt blood pressure 173/120 and hr 124. md change pt medication lopressor 25mg bid to lopressor 50mg po bid. and give one dose now.
[2019-09-11] MEDS ORDERED: METOPROLOL TARTRATE 50 MG TABLET PO ONE (04:00)
[2019-09-11] MEDS ORDERED: METOPROLOL TARTRATE 50 MG TABLET ONE (04:14)
[2019-09-11] MEDS: PIPERACILLIN/TAZO 3.375/DEX-IS 50 ML IV SCH ×5 (06:47→23:23)
--- NOTE | 2019-09-11 07:36 | NUR ---
Opening Note received bedside SBAR report from assembler 1st shift RN, patient resting in bed, respirations even and unlabored, no acute distress noted, patient reports pain is controlled, educated patient on use of call light and asked to call for assistance, patient verbalized understanding, call light in reach, bed in low and locked position, bed alarm on.
[2019-09-11 08:00] VITALS: BP_SYST 148
[2019-09-11] MEDS: POLYETHYLENE GLYCOL 3350, 17 GM/ POWD.PACK PO SCH (08:26)
[2019-09-11] MEDS: SENNOSIDES/DOCUSATE SODIUM 1 TAB TABLET(SENOKOT-S) PO SCH ×2 (08:29→22:27)
[2019-09-11] MEDS: ATORVASTATIN 20 MG TABLET PO SCH (08:29)
[2019-09-11] MEDS: MIRTAZAPINE 15 MG TABLET PO SCH (08:30)
[2019-09-11] MEDS: ASPIRIN 81 MG TABLET(ECOTRIN) PO SCH (08:30)
[2019-09-11] MEDS: METOPROLOL TARTRATE 50 MG TABLET PO SCH ×2 (08:30→22:26)
[2019-09-11] MEDS: FAMOTIDINE 20 MG TABLET PO SCH ×2 (08:30→22:27)
[2019-09-11] MEDS: LR 1,000 ML IV SCH ×2 (08:31→18:30)
--- NOTE | 2019-09-11 09:45 | NUR ---
IV access IV to right forearm leaking, IV catheter removed, catheter intact, no bleeding, new IV catheter placed to left forearm, 22G, flushes easily with blood return, patient tolerated well.
[2019-09-11 11:26] VITALS: BP_SYST 138
--- NOTE | 2019-09-11 11:53 | NUR ---
Incentive Spirometer respiratory therapist at bedside educating patient on purpose and procedure for incentive spirometer use, patient unable to return demonstration, will reinforce education, patient resting in bed.
--- NOTE | 2019-09-11 14:04 | NUR ---
Physician Rounds Dr. Petit at bedside examining patient, Dr. Petit spoke with patients daughter Stephanie on telephone and asked her to come in during meal time to encourage patient to eat due to decreased PO intake, per Stephanie she will be in today.
[2019-09-11 15:43] VITALS: BP_SYST 134
--- NOTE | 2019-09-11 16:23 | NUR ---
RN Rounds patient resting in bed, respirations even and unlabored on room air, no acute distress noted, patient denies any pain, IV fluids infusing well, no redness or swelling noted at IV site.
--- NOTE | 2019-09-11 18:05 | NUR ---
RN Rounds Patient sitting up in bed eating dinner with assistance from daughter Stephanie, patient tolerating well, no acute distress noted.
--- NOTE | 2019-09-11 19:12 | NUR ---
Closing Note bedside SBAR report given to receiving RN, patient resting in bed, respirations even and unlabored on room air, no acute distress noted, patients daughter at bedside, educated patient on use of call light and asked to call for assistance, patient verbalized understanding, call light in reach, bed in low and locked position, bed alarm on, care endorsed to assembler 1st shift RN.
--- NOTE | 2019-09-11 21:00 | NUR ---
PT RECIEVED AWAKE AND ORIENTED X3 . VITAL SIGN STABLE . NO INFILTRATED OF IV . D51/2NS AT70/HR . PT HAVE INCISION LOWER ABDOMEN . PT VITAL SIGN STABLE . PT ASSISTED IN FEEDING PT HIS DESERT . PT ON SINUS RYTHM . WILL NONITOR PT .
--- NOTE | 2019-09-12 | NUR ---
PT AWAKE STILL .HAVE NO CHEST PAIN . NO C/O ABD PAIN . VS.STABLE .
--- NOTE | 2019-09-12 | NUR ---
PT,S VITAL SIGN STABLE . PT CONTINUE TO MONITOR PT VITAL SIGN . EVERY 4HRS.
--- NOTE | 2019-09-12 | NUR ---
V/S STABLE . PT ON SR . PT SLEEPING . PT TURNED AND REPOSITIONED .
[2019-09-12 02:27] VITALS: BP_SYST 112
--- NOTE | 2019-09-12 05:00 | NUR ---
PT HAD NO C/O CHEST PAIN . PT WILL BE MONITOR ON SINUS RYTHM .
[2019-09-12] MEDS: PIPERACILLIN/TAZO 3.375/DEX-IS 50 ML IV SCH ×3 (06:09→18:36)
[2019-09-12 06:37] LABS: CALCIUM 8.8 mg/dL (8.4-11.0); CREATININE 1.08 mg/dL (0.55-1.30); POTASSIUM 3.2 mmol/L (3.5-5.1)
[2019-09-12 06:46] LABS: BASOPHILS % (AUTO) 0.6 % (0.0-2.0); EOSINOPHILS # (AUTO) 0.4 K/uL (0.0-0.4); EOSINOPHILS % (AUTO) 4.5 % (0.0-4.0); HEMATOCRIT 29.6 % (36-54); HEMOGLOBIN 10.1 g/dL (14.0-18.0); LYMPHOCYTES # (AUTO) 1.7 K/uL (1.0-5.5); LYMPHOCYTES % (AUTO) 19.9 % (20.5-51.5); MEAN CORPUSCULAR HEMOGLOBIN 29 pg (27-31); MEAN CORPUSCULAR HGB CONC 34 % (32-36); MEAN CORPUSCULAR VOLUME 84 fL (79.0-98.0); MONOCYTES # (AUTO) 0.4 K/uL (0.0-1.0); NEUTROPHILS # (AUTO) 6.1 K/uL (1.8-7.7); PLATELET COUNT (AUTO) 221 K/uL (130-430); RED BLOOD CELL COUNT(AUTO) 3.51 MIL/uL (4.2-6.2); WHITE BLOOD COUNT (AUTO) 8.7 K/uL (4.8-10.8)
--- NOTE | 2019-09-12 07:10 | NUR ---
Received report and patient from [facility] shift nurse. Patient in no acute distress. Alert and oriented. No pain as stated by patient. Side rails x 3 up. Call light with in reach.
[2019-09-12] MEDS: METOPROLOL TARTRATE 50 MG TABLET PO SCH ×2 (09:00→21:26)
[2019-09-12] MEDS: SENNOSIDES/DOCUSATE SODIUM 1 TAB TABLET(SENOKOT-S) PO SCH ×2 (11:23→21:25)
[2019-09-12] MEDS: ATORVASTATIN 20 MG TABLET PO SCH (11:24)
[2019-09-12] MEDS: MIRTAZAPINE 15 MG TABLET PO SCH (11:28)
[2019-09-12] MEDS: FAMOTIDINE 20 MG TABLET PO SCH ×2 (11:28→21:25)
[2019-09-12] MEDS: POLYETHYLENE GLYCOL 3350, 17 GM/ POWD.PACK PO SCH (11:29)
[2019-09-12] MEDS: ASPIRIN 81 MG TABLET(ECOTRIN) PO SCH (11:29)
[2019-09-12 12:32] VITALS: BP_SYST 99
[2019-09-12] MEDS ORDERED: MILK OF MAGNESIA 30 ML UDC PO PRN (15:15)
[2019-09-12] MEDS ORDERED: MILK OF MAGNESIA 30 ML UDC PO ONE (15:15)
[2019-09-12] MEDS ORDERED: POTASSIUM CHLORIDE 40 MEQ, LIDOCAINE JECT 2% PF 100 MG 50 MG in NS 250 ML IV ONE (15:30)
[2019-09-12 16:51] VITALS: BP_SYST 101
[2019-09-12] MEDS: LR 1,000 ML IV SCH (18:37)
--- NOTE | 2019-09-12 19:10 | NUR ---
Gave report and patient to NOC shift nurse. Patient in no acute distress. Alert and oriented. No pain as stated by patient. Side rails x 3 up. Call light with in reach.
[2019-09-12 20:00] VITALS: BP_SYST 113
--- NOTE | 2019-09-12 21:00 | NUR ---
PT RECIEVED AWAKE ALERT AND ORIENTED X3 . SCOPE ON SINUS RYTHM .VITAL SIGN IS STABLE PT HAVE LOWER MID ABDOMINAL INCISION FROM HERNIA REPAIR . PT HAVE NO COMPLAIN OF PAIN .PT ON PUREE DIET .ON IV LR AT 75CC/HR PT Kwame AU HAS BEEN D/C . WILL MONITOR PT THROUGH THE NIGHT .
[2019-09-12] MEDS: POTASSIUM CHLORIDE 20 MEQ TAB.PRT.SR PO SCH (21:25)
[2019-09-13] MEDS: PIPERACILLIN/TAZO 3.375/DEX-IS 50 ML IV SCH ×4 (00:40→17:54)
[2019-09-13 02:14] VITALS: BP_SYST 101
--- NOTE | 2019-09-13 05:00 | NUR ---
PT MONITORED. ON SINUS RYTHM NO ECTOPIC BEATS . AM CARE GIVEN . WILL CONTINUE TO MONITOR PT . .
[2019-09-13 06:28] LABS: BASOPHILS % (AUTO) 0.6 % (0.0-2.0); EOSINOPHILS # (AUTO) 0.5 K/uL (0.0-0.4); EOSINOPHILS % (AUTO) 7.3 % (0.0-4.0); HEMATOCRIT 29.2 % (36-54); HEMOGLOBIN 10.1 g/dL (14.0-18.0); LYMPHOCYTES # (AUTO) 1.5 K/uL (1.0-5.5); LYMPHOCYTES % (AUTO) 21.5 % (20.5-51.5); MEAN CORPUSCULAR HEMOGLOBIN 29 pg (27-31); MEAN CORPUSCULAR HGB CONC 35 % (32-36); MEAN CORPUSCULAR VOLUME 84 fL (79.0-98.0); MONOCYTES # (AUTO) 0.3 K/uL (0.0-1.0); MONOCYTES % (AUTO) 4.7 % (1.7-9.3); NEUTROPHILS # (AUTO) 4.7 K/uL (1.8-7.7); NEUTROPHILS % (AUTO) 65.9 % (40.0-70.0); PLATELET COUNT (AUTO) 207 K/uL (130-430); RED BLOOD CELL COUNT(AUTO) 3.49 MIL/uL (4.2-6.2); RED CELL DISTRIBUTION WIDTH 15.2 % (9.0-15.0); WHITE BLOOD COUNT (AUTO) 7.1 K/uL (4.8-10.8)
[2019-09-13 06:29] LABS: CALCIUM 8.4 mg/dL (8.4-11.0); CREATININE 0.88 mg/dL (0.55-1.30); POTASSIUM 3.2 mmol/L (3.5-5.1)
--- NOTE | 2019-09-13 07:30 | NUR ---
OPENING NOTES: RECEIVED PATIENT FROM INSULATION WORKER NURSE. PATIENT IS AWAKE AND ALERT x3 SITTING UP IN BED. PATIENT DENIES ANY PAIN AT THE MOMENT. PATIENT IS TOLERATING OXYGEN AT ROOM AIR WITH NO SIGNS OF DISTRESS OR SHORTNESS OF BREATH NOTED. IV SITE IS PATENT WITH NO SIGNS OF INFILTRATION. PATIENT IN STABLE CONDITION. SAFETY, FALL, ASPIRATION, AND CONTACT PRECAUTIONS ARE IN PLACE. BED LOCKED IN LOWEST POSITION WITH CALL LIGHT IN REACH. WILL CONTINUE TO MONITOR PATIENT FOR ANY CHANGES.
[2019-09-13 08:07] VITALS: BP_SYST 117
[2019-09-13] MEDS: LR 1,000 ML IV SCH (09:11)
[2019-09-13] MEDS: POLYETHYLENE GLYCOL 3350, 17 GM/ POWD.PACK PO SCH (09:11)
[2019-09-13] MEDS: FAMOTIDINE 20 MG TABLET PO SCH ×2 (09:13→21:47)
[2019-09-13] MEDS: SENNOSIDES/DOCUSATE SODIUM 1 TAB TABLET(SENOKOT-S) PO SCH ×2 (09:13→21:49)
[2019-09-13] MEDS: POTASSIUM CHLORIDE 20 MEQ TAB.PRT.SR PO SCH ×2 (09:13→21:47)
[2019-09-13] MEDS: ASPIRIN 81 MG TABLET(ECOTRIN) PO SCH (09:13)
[2019-09-13] MEDS: METOPROLOL TARTRATE 50 MG TABLET PO SCH ×2 (09:13→21:48)
[2019-09-13] MEDS: MIRTAZAPINE 15 MG TABLET PO SCH (09:14)
[2019-09-13] MEDS: ATORVASTATIN 20 MG TABLET PO SCH (09:14)
--- NOTE | 2019-09-13 10:20 | NUR ---
RN ROUNDS: PATIENT IS AWAKE AND ALERT x2 LAYING DOWN IN BED. FAMILY AT BEDSIDE. PATIENT DENIES ANY PAIN AT THE MOMENT. NO SIGNS OF DISTRESS OR SHORTNESS OF BREATH NOTED. PATIENT IN STABLE CONDITION. WILL CONTINUE TO MONITOR PATIENT FOR ANY CHANGES.
--- NOTE | 2019-09-13 12:21 | NUR ---
RN ROUNDS: PATIENT IS ASLEEP LAYING DOWN IN BED. NO SIGNS OF DISTRESS OR SHORTNESS OF BREATH NOTED. FAMILY AT BEDSIDE. PATIENT IN STABLE CONDITION. WILL CONTINUE TO MONITOR PATIENT FOR ANY CHANGES.
[2019-09-13 12:43] VITALS: BP_SYST 104
--- NOTE | 2019-09-13 13:42 | NUR ---
PHYSICAL THERAPY CO-SIGN The Physical Therapy Progress Notes documented by Metal Tank Erector have been reviewed. Reviewed/Co-Signed by: Karlos Brooke, PT Documentation Done by: VANDANA JOINER PTA Addendum: 09/13/19 at 1345 by Karlos Brooke PT Amended: Links added.
--- NOTE | 2019-09-13 13:44 | NUR ---
PHYSICAL THERAPY CO-SIGN The Physical Therapy Progress Notes documented by Hot Metal Crane Operator have been reviewed. Reviewed/Co-Signed by: Karlos Brooke, PT Documentation Done by: VANDANA BASS PTA Addendum: 09/13/19 at 1345 by Karlos Brooke PT Amended: Links added.
--- NOTE | 2019-09-13 13:45 | NUR ---
PHYSICAL THERAPY CO-SIGN The Physical Therapy Progress Notes documented by Industrial Health And Safety Professor have been reviewed. Reviewed/Co-Signed by: Karlos Brooke, PT Documentation Done by: VANDANA BASS PTA Addendum: 09/13/19 at 1345 by Karlos Brooke PT Amended: Links added.
--- NOTE | 2019-09-13 14:35 | NUR ---
RN ROUNDS: PATIENT IS ASLEEP LAYING DOWN IN BED. FAMILY AT BEDSIDE. NO SIGNS OF DISTRESS OR SHORTNESS OF BREATH NOTED. PATIENT IN STABLE CONDITION. WILL CONTINUE TO MONITOR PATIENT FOR ANY CHANGES.
[2019-09-13] MEDS ORDERED: POLYETHYLENE GLYCOL 3350, 17 GM/ POWD.PACK PO ONE (16:30)
--- NOTE | 2019-09-13 16:32 | NUR ---
RN ROUNDS: PATIENT IS AWAKE AND ALERT x2 LAYING DOWN IN BED. PATIENT DENIES ANY PAIN AT THE MOMENT. NO SIGNS OF DISTRESS OR SHORTNESS OF BREATH NOTED. PATIENT IN STABLE CONDITION.
[2019-09-13 16:37] VITALS: BP_SYST 108
--- NOTE | 2019-09-13 17:00 | NUR ---
DC Planning: late entry: s/w pt's son/Lisandro at bedside and dtr/Amada via phone : informed that the pt can be discharged to home today. Both stated " could not take pt home today, they have to go to work staring at 5 pm and get off late in middle of the night. They asked to pick pt up tomorrow by 9 am. >> Cm spoke with them both about how to call [facility] office for IHSS benefits. The [facility] clinic list, transportation information list and [facility] [employer] contact number for DME needs also provided. Both dtr and son wanted help with a group home placement at any snf. Both made aware that there is no accepting snf so far. And dr. Petit ordered to dc pt home with family. Son stated that the pt has been with same ADL's, needs maximum assist to get out of bed since 2009. Himself, Anai and other dtr took turn to be with the pt in the past. The pt was at [facility] for 3 months and was dc to home. Son and dtr took the pt into their home and changed insurance to [facility]. Both son and dtr agreed to take pt home tomorrow as mentioned above. CM provided them with the financial criteria and snf information for them to investigate for further group home placement needs. -- WYATT Pringle made aware.
[2019-09-13] MEDS ORDERED: FAMO20TA8 PO (18:04)
[2019-09-13] MEDS ORDERED: METO-442 PO (18:04)
[2019-09-13] MEDS ORDERED: POTA20TA83 PO (18:04)
[2019-09-13] MEDS ORDERED: MOM PO (18:04)
[2019-09-13] MEDS ORDERED: ASPI-1153 PO (18:04)
--- NOTE | 2019-09-13 18:27 | NUR ---
CLOSING NOTES: PATIENT IS AWAKE AND ALERT x2 SITTING UP IN BED. PATIENT DENIES ANY PAIN AT THE MOMENT. PATIENT IS TOLERATING OXYGEN AT ROOM AIR WITH NO SIGNS OF DISTRESS OR SHORTNESS OF BREATH NOTED. IV SITE IS PATENT WITH NO SIGNS OF INFILTRATION. PATIENT IN STABLE CONDITION. SAFETY, FALL, ASPIRATION, AND CONTACT PRECAUTIONS REMAINED IN PLACE THROUGHOUT THE SHIFT. BED LOCKED IN LOWEST POSITION WITH CALL LIGHT IN REACH. WILL ENDORSE PATIENT CARE TO ONCOMING TROLLEY WORKER NURSE.
[2019-09-13 20:00] VITALS: BP_SYST 116
--- NOTE | 2019-09-13 21:00 | NUR ---
PT RECIEVED AWAKE ALERT AND ORIENTED X3 . PT HAD HERNIA REPAIR . INCISIONON THE LOWER ABD PT HAVE NO C/O PAIN . PT ON SINUS RYTHM PT HAVE IV LR AT 30CC/HR .PT ON CONTACT ISOLATION FOR FOR MDRO. PT WILL BE DISHARGE TOMORROW.WILL CONTINUE TO MONITOR PT .
--- NOTE | 2019-09-14 | NUR ---
PT HAVE NO C/O PAIN ,NO C[O SOB , VITAL SIGN STABLE . WILL CONTINUE TO MONITOR PT FOR ANY PAIN OR SWOB .
[2019-09-14 00:33] VITALS: BP_SYST 128
[2019-09-14] MEDS: PIPERACILLIN/TAZO 3.375/DEX-IS 50 ML IV SCH ×2 (00:51→06:56)
--- NOTE | 2019-09-14 05:04 | NUR ---
PT REMAIN ON SINUS RYTHM . VITAL SIGN STABLE . PT ON SINUS RYTHM . AM CARE DONE . PT FOR DISCHARGE TODAY.
--- NOTE | 2019-09-14 07:35 | NUR ---
Opening Note received bedside SBAR report from radiographic technologist RN, patient resting in bed, respirations even and unlabored on room air, no acute distress noted, educated patient on use of call light and asked to call for assistance, patient verbalized understanding, call light in reach, bed in low and locked position, bed alarm on.
[2019-09-14 07:50] LABS: CALCIUM 8.7 mg/dL (8.4-11.0); CREATININE 0.78 mg/dL (0.55-1.30); POTASSIUM 3.8 mmol/L (3.5-5.1)
[2019-09-14 08:00] VITALS: BP_SYST 159
[2019-09-14] MEDS: SENNOSIDES/DOCUSATE SODIUM 1 TAB TABLET(SENOKOT-S) PO SCH (08:20)
[2019-09-14] MEDS: MIRTAZAPINE 15 MG TABLET PO SCH (08:20)
[2019-09-14] MEDS: FAMOTIDINE 20 MG TABLET PO SCH (08:21)
[2019-09-14] MEDS: ATORVASTATIN 20 MG TABLET PO SCH (08:21)
[2019-09-14] MEDS: METOPROLOL TARTRATE 50 MG TABLET PO SCH (08:21)
[2019-09-14] MEDS: ASPIRIN 81 MG TABLET(ECOTRIN) PO SCH (08:21)
[2019-09-14] MEDS: POTASSIUM CHLORIDE 20 MEQ TAB.PRT.SR PO SCH (08:21)
[2019-09-14] MEDS ORDERED: POLYETHYLENE GLYCOL 3350, 17 GM/ POWD.PACK PO SCH (09:00)
[2019-09-14] MEDS: LR 1,000 ML IV SCH (09:55)
--- NOTE | 2019-09-14 09:56 | NUR ---
RN Rounds patient resting in bed, respirations even and unlabored on room air, patient denies any pain, no acute distress noted.
--- NOTE | 2019-09-14 10:18 | NUR ---
Discharge Planning: MIP faxed pt referral to [facility] (f [phone] p [phone]) not able to service pt due to short staff Addendum: 09/14/19 at 1231 by Jackie Stark DP DCP faxed pt referral to [facility] (f [phone] p [phone]) DCP to follow up
[2019-09-14 10:29] VITALS: BP_SYST 159
--- NOTE | 2019-09-14 10:37 | NUR ---
Flu Vaccine spoke with patients daughter Sydney at bedside, per patients daughter she would like patient to receive flu vaccine today, flu vaccine assessment completed.
[2019-09-14] MEDS ORDERED: FLU VACC QS2019-20 36MOS UP/PF 60 MCG/0.5 ML SYRINGE I.M. PRN (10:45)
--- NOTE | 2019-09-14 11:11 | NUR ---
Discharge provided patient and patients daughter Sydney with discharge packet and instructions, patient and patients daughter verbalized understanding, IV catheter removed, catheter intact, no bleeding, no acute distress noted, respirations even and unlabored on room air, surgical incision to abdomen clean, dry, and intact, steri strips in place, all belongings sent with patient, patient accompanied by daughter Sydney for discharge, patient taken to parking lot via wheelchair.
--- NOTE | 2019-09-16 10:58 | NUR ---
Discharge Planning Spoke with Jackie GARCES Coordinator. Patient went home with [facility].
--- NOTE | 2019-09-17 15:05 | NUR ---
PHYSICAL THERAPY CO-SIGN The Physical Therapy Progress Notes documented by Atlassian Administrator have been reviewed. Reviewed/Co-Signed by: Karlos Brooke PT Documentation Done by: VANDANA BASS PTA Addendum: 09/17/19 at 1506 by Karlos Brooke PT Amended: Links added.
--- NOTE | 2019-09-17 16:16 | NUR ---
Discharge Follow Up Phone Call Phoned patient, , and spoke with daughter, Stephanie. She stated patient seemed back to baseline and was doing okay. [facility] has followed up. Recommended they go to [facility] clinics for follow up (she was given a list while patient was in the hospital). Also recommended she get patient's Medi-Tarun assigned to a group, such as [facility], [facility], etc for better access to PCP and after care. She agreed. No other questions or concerns.
== END 2019-09-14 11:05 | disposition home health service (06) | DRG 228 ==
LOC: SED 13:22 → STU 20:00
PROVIDERS: ADMIT Internal Medicine; ATTEND Internal Medicine
PROC: 0YU60JZ Supplement Left Inguinal Region with Synthetic Substitute, Open Approach (ICD-10-PCS; principal; 2019-09-06 17:30)
DX: K40.30 Unilateral inguinal hernia, with obstruction, without gangrene, not specified as recurrent (principal); E43 Unspecified severe protein-calorie malnutrition; I10 Essential (primary) hypertension; N39.0 Urinary tract infection, site not specified; R13.10 Dysphagia, unspecified; R00.0 Tachycardia, unspecified; B96.1 Klebsiella pneumoniae [K. pneumoniae] as the cause of diseases classified elsewhere; B96.89 Other specified bacterial agents as the cause of diseases classified elsewhere; E87.6 Hypokalemia; K59.00 Constipation, unspecified; N20.0 Calculus of kidney; E78.5 Hyperlipidemia, unspecified; Z79.82 Long term (current) use of aspirin; Z79.899 Other long term (current) drug therapy; I69.354 Hemiplegia and hemiparesis following cerebral infarction affecting left non-dominant side; I69.320 Aphasia following cerebral infarction; Z74.01 Bed confinement status; Z68.1 Body mass index [BMI] 19.9 or less, adult
CPT/HCPCS: 36415; 71045; 74018; 74230; 80048; 80053; 80061; 81000-TC; 82150-TC; 82550-TC; 83605; 83690-TC; 84439; 84443-TC; 84484; 85025; 85610-TC; 85651-TC; 85730-TC; 87040-TC; 87081; 87086; 87186-TC; 92610-GN; 92611-GN; 93005; 93306; 96374; 96375; 97110-GP; 97530-GP; 99285; C1781; C9290; G0378; J0690; J2250; J2270; J2405; J2543; J2704; J2710; J3010; J3480; J3490; J7050; J7120

== ENCOUNTER 2019-11-21 15:10 | Emergency (ER) | payer MEDICAID ==
[~2019-11-21] VITALS: Ht 170.2 cm; Wt 40.8 kg
[~2019-11-21 15:10] MED LIST: ASPI-1153 PO; FAMO20TA8 PO; LIP40 PO; METO-442 PO; MIRT15TA7 PO; MOM PO; POTA20TA83 PO
[2019-11-21 15:15] VITALS: BP_SYST 152
[2019-11-21] MEDS ORDERED: NACL 0.9% 1,000 ML IV ONE (15:39)
[2019-11-21] MEDS ORDERED: MORPHINE 2 MG/ML INJ. SYRINGE IVP ONE (15:45)
[2019-11-21] MEDS ORDERED: ONDANSETRON HCL 4 MG/2 ML VIAL IVP ONE (15:45)
[2019-11-21 16:29] LABS: BASOPHILS % (AUTO) 0.7 % (0.0-2.0); EOSINOPHILS # (AUTO) 0.1 K/uL (0.0-0.4); EOSINOPHILS % (AUTO) 2.9 % (0.0-4.0); HEMATOCRIT 43.6 % (36-54); HEMOGLOBIN 14.5 g/dL (14.0-18.0); LYMPHOCYTES # (AUTO) 1.1 K/uL (1.0-5.5); LYMPHOCYTES % (AUTO) 25.6 % (20.5-51.5); MEAN CORPUSCULAR HEMOGLOBIN 28 pg (27-31); MEAN CORPUSCULAR HGB CONC 33 % (32-36); MEAN CORPUSCULAR VOLUME 83 fL (79.0-98.0); MONOCYTES # (AUTO) 0.3 K/uL (0.0-1.0); MONOCYTES % (AUTO) 6.1 % (1.7-9.3); NEUTROPHILS # (AUTO) 2.7 K/uL (1.8-7.7); NEUTROPHILS % (AUTO) 64.7 % (40.0-70.0); PLATELET COUNT (AUTO) 144 K/uL (130-430); RED BLOOD CELL COUNT(AUTO) 5.22 MIL/uL (4.2-6.2); RED CELL DISTRIBUTION WIDTH 15.8 % (9.0-15.0); WHITE BLOOD COUNT (AUTO) 4.2 K/uL (4.8-10.8)
[2019-11-21 16:35] LABS: CALCIUM 8.5 mg/dL (8.4-11.0); CREATININE 0.85 mg/dL (0.55-1.30); POTASSIUM 3.7 mmol/L (3.5-5.1)
[2019-11-21 16:41] LABS: ALBUMIN 3.3 g/dL (3.4-4.8); INR 1.1 (0.80-1.20); PROTHROMBIN TIME 10.6 SECS (9.5-12.5); TOTAL BILIRUBIN 0.4 mg/dL (0.0-1.0)
[2019-11-21 18:19] VITALS: BP_SYST 154
== END 2019-11-21 18:21 | disposition home or self-care (01) ==
LOC: SED 15:10
DX: K40.90 Unilateral inguinal hernia, without obstruction or gangrene, not specified as recurrent (principal); K59.00 Constipation, unspecified; I69.354 Hemiplegia and hemiparesis following cerebral infarction affecting left non-dominant side; Z79.82 Long term (current) use of aspirin
CPT/HCPCS: 36415; 71045; 74176; 80053; 82150; 82550; 83605; 83690; 83880; 84484; 85025; 85610; 85730; 87040; 93005; 96374; 96375; 99285; J2270; J2405; J7030

== ENCOUNTER 2021-01-01 20:38 | Inpatient (IN) | payer MEDICAID, SELFPAY ==
[~2021-01-01] VITALS: Ht 170.2 cm; Wt 54.0 kg
[2021-01-01 20:38] VITALS: BP_SYST 158
[~2021-01-01 20:38] MED LIST changes: -ASPI-1153 PO; +ASPI-1393 PO
--- NOTE | 2021-01-01 20:38 | NUR ---
Placed in room 01 . Placed on desk monitor, blood pressure machine and pulse oximeter. To gown for exam. Side rails up.
--- NOTE | 2021-01-01 20:42 | NUR ---
PATIENT PRESENT TO ER VIA WHEELCHAIR ACCOMPANIED BY DAUGHTER AND SON FOR LEFT SIDED FACE PAIN, SUBJECTIVE FEVERS AND BODY ACHES SINCE THIS MORNING. 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 DAUGHTER REPORTS HE HAS RECURRENT UTIS AND WAS CONFUSED TODAY. PATIENT HAS AXILLARY OF 102.3. HX OF HYPERTENSION AND HYERLIPIDEMIA. NO OTHER COMPLAINTS/INJURIES PER PATIENT OR NOTED. WILL CONTINUE TO MONITOR.
--- NOTE | 2021-01-01 20:42 | NUR ---
# 20 gauge angiocath placed to RT AC. Use of asceptic technique. Opsite placed over site. Blood return noted. Blood for lab drawn from site. Flushed with 10 cc of normal saline. No evidence of infiltration noted. Patient tolerated well.
--- NOTE | 2021-01-01 20:45 | NUR ---
# 18 gauge angiocath placed to LEFT AC. Use of asceptic technique. Opsite placed over site. Blood return noted. Flushed with 10 cc of normal saline. No evidence of infiltration noted. Patient tolerated well.
--- NOTE | 2021-01-01 20:46 | NUR ---
ER Dr. COOMBS at bedside examining patient.
--- NOTE | 2021-01-01 20:56 | NUR ---
# 16 FR In and Out catheter with use of sterile technique. Immediate return of 100 ml cloudy yellow urine noted. Urine sample collected and sent to lab. Pt tolerated procedure well.
[2021-01-01] MEDS ORDERED: ACETAMINOPHEN 500 MG TABLET PO ONE (21:00)
[2021-01-01] MEDS ORDERED: NACL 0.9% 1,000 ML IV ONE ×2 (21:00→22:15)
[2021-01-01 21:06] LABS: BASOPHILS % (AUTO) 0.2 % (0.0-2.0); EOSINOPHILS % (AUTO) 0.1 % (0.0-4.0); HEMATOCRIT 50.6 % (36-54); HEMOGLOBIN 16.9 g/dL (14.0-18.0); LYMPHOCYTES # (AUTO) 0.5 K/uL (1.0-5.5); LYMPHOCYTES % (AUTO) 5.8 % (20.5-51.5); MEAN CORPUSCULAR HEMOGLOBIN 29 pg (27-31); MEAN CORPUSCULAR HGB CONC 34 % (32-36); MEAN CORPUSCULAR VOLUME 88 fL (79.0-98.0); MONOCYTES # (AUTO) 0.3 K/uL (0.0-1.0); MONOCYTES % (AUTO) 2.9 % (1.7-9.3); NEUTROPHILS # (AUTO) 8.5 K/uL (1.8-7.7); PLATELET COUNT (AUTO) 128 K/uL (130-430); RED BLOOD CELL COUNT(AUTO) 5.78 MIL/uL (4.2-6.2); RED CELL DISTRIBUTION WIDTH 14.5 % (9.0-15.0); WHITE BLOOD COUNT (AUTO) 9.3 K/uL (4.8-10.8)
[2021-01-01] MEDS ORDERED: AMLO5TAB4 PO (21:12)
[2021-01-01] MEDS ORDERED: LISI10TA29 PO (21:13)
--- NOTE | 2021-01-01 21:13 | NUR ---
Medication reconciliation completed with information provided by patients daughter. Any prior medication reconciliation on file was reviewed and corrected.
--- NOTE | 2021-01-01 21:14 | NUR ---
radiology at bedside for chest xray.
--- NOTE | 2021-01-01 21:15 | NUR ---
Patient's code status is FULL CODE paperwork completed and placed in chart.
[2021-01-01 21:25] LABS: BILIRUBIN,URINE NEGATIVE (NEGATIVE); BLOOD, URINE 2+ (NEGATIVE); COLOR,URINE YELLOW (YELLOW); GLUCOSE,URINE NEGATIVE (NEGATIVE); KETONES,URINE NEGATIVE (NEGATIVE); LEUKOCYTE ESTERASE ,URINE 2+ (NEGATIVE); NITRITE, URINE NEGATIVE (NEGATIVE); PROTEIN URINE 1+ (NEGATIVE)
[2021-01-01 21:29] LABS: CLARITY/URINE CLOUDY (CLEAR)
[2021-01-01 21:36] LABS: BACTERIA,URINE MANY /HPF (None Seen); WBC,URINE >100 /HPF (0-3)
[2021-01-01 21:37] LABS: CALCIUM PHOSPHATE CRYSTALS,UR None Seen /HPF (None Seen); TRICHOMONAS,URINE None Seen /HPF (None Seen); YEAST,URINE None Seen /HPF (None Seen)
[2021-01-01 21:42] LABS: CALCIUM 8.1 mg/dL (8.4-11.0); CREATININE 1.2 mg/dL (0.55-1.30)
[2021-01-01 21:47] LABS: ALBUMIN 3.8 g/dL (3.4-4.8); TOTAL BILIRUBIN 1.3 mg/dL (0.0-1.0)
--- NOTE | 2021-01-01 22:02 | NUR ---
pts temperature is 101.2 axillary. aware.
--- NOTE | 2021-01-01 22:08 | NUR ---
Covid swab collected and sent to lab.
[2021-01-01] MEDS ORDERED: cefTRIAXone 1 GM IVPB PREMIX 50 ML IV ONE ×2 (22:15→22:29)
[2021-01-01 22:17] LABS: CKMB RELATIVE INDEX 1.4 (0.0-2.9); CREATINE KINASE MB 5.6 ng/mL (0-3.6)
--- NOTE | 2021-01-01 22:26 | NUR ---
ER Dr. Duran at bedside examining patient.
--- NOTE | 2021-01-01 22:34 | NUR ---
IV ANTIBIOTICS STARTED. BLOOD CULTURES ALREADY DRAWN.
[2021-01-01] MEDS ORDERED: FAMOTIDINE 20 MG TABLET PO ONE (22:45)
[2021-01-01] MEDS ORDERED: ACETAMINOPHEN 325 MG TABLET PO ONE (22:45)
[2021-01-01] MEDS ORDERED: IBUPROFEN 600 MG TABLET PO ONE (22:45)
[2021-01-01] MEDS ORDERED: ACETAMINOPHEN 650 MG SUPP.RECT RC PRN (23:30)
--- NOTE | 2021-01-01 23:35 | NUR ---
Patient will be admitted to care of DR WAYNE. Admitted to TELEMETRY unit. BED PLACEMENT PENDING. Belongings list completed. Complete and up to date summary report printed. SBAR report to be given at bedside with opportunity for questions.
[2021-01-02] VITALS (17 sets, daily range): BP systolic 85–171
--- NOTE | 2021-01-02 00:17 | NUR ---
Transfer to TELEMETRY via ACLS protocol. Licensed nurse present. IV present no signs or symptoms of infiltration.
--- NOTE | 2021-01-02 00:24 | NUR ---
PATIENT BELONGINGS GIVEN TO SECURITY. DAUGHTER, GIDEON, WILL REQUIREMENTS ENGINEER IN THE MORNING.
--- NOTE | 2021-01-02 00:26 | NUR ---
Admission Note Received patient from ER with diagnosis of SEPSIS. Initial Plan of Care discussed-patient verbalized understanding. Oriented to room, call light, pain management and safety.
[2021-01-02] MEDS ORDERED: PIPERACILLIN/TAZOBACTAM 3.375 GM/VIAL (ZOSYN) IV ONE (00:56)
[2021-01-02] MEDS: PIPERACILLIN/TAZO 3.375/DEX-IS 50 ML IV SCH ×5 (01:16→23:59)
--- NOTE | 2021-01-02 07:10 | NUR ---
Nutrition Update Jeovanny Scale 14 noted. Pt admitted for Sepsis Diet: no diet order BMI: 18.6 kg/m2 RD to follow per nutrition care standards.
--- NOTE | 2021-01-02 07:55 | NUR ---
AM NOTES PT IN BED.AWAKE A/OX3 . DENIES ANY PAIN OR OTHER DISCOMFORT. BP 85/58. HR 69. RES 18 .O2 SAT 95% ON RA.PLACED PT IN [place] POSITION.CHARGE NURSE JOVITA MADE AWARE. PAGED DR WAYNE TO NOTIFY. SAFETY AND FALL PRECAUTIONS IN PLCAE. WILL REYES HARTMAN TO CALL BACK
[2021-01-02] MEDS: D5NS 1,000 ML IV SCH ×3 (08:26→21:54)
--- NOTE | 2021-01-02 08:36 | NUR ---
TRANSFER TO ICU. PT TRANSFERED TO ICU IN STABLE CONDITON. BP 100/60. IVF D5NS @150 ML/HR STARTEDAS PER DR WAYNE ORDER. REPORT GIVEN TO WYATT VILLARREAL.
--- NOTE | 2021-01-02 08:37 | NUR ---
TRANSFERRED IN TO ICU RECEIVED PT IN ROOM 3, PT AWAKE, NON LITHUANIAN SPEAKING, SMILES AT STAFF, DENIES DISCOMFORTS, BP 93/62, IVF IN RIGHT A/C, HANDKERCHIEF MAKER ON SINUS RHYTHM, WILL CONTINUE TO MONITOR.
[2021-01-02] MEDS ORDERED: VANCOMYCIN HCL 1 GM/NS PREMIX 250 ML IV ONE (09:00)
--- NOTE | 2021-01-02 09:03 | NUR ---
CONSULTATION PAGED/CALLED Reason for Consultation: SEPSIS Person Who was Notified: DR SEALS Consulting Physician: DR SEALS Ordering Physician: DR ROSANA SEALS WAS INFORMED IN HOSPITAL
--- NOTE | 2021-01-02 09:10 | NUR ---
HYGIENE. PT INCONTINENT OF BLADDER, CLEANSED GENITAL AREA WITH SOAPY TOWEL, RINSED AND MADE PT CLEAN AND DRY.
[2021-01-02] MEDS ORDERED: LR 1,000 ML IV ONE ×2 (09:15→10:15)
[2021-01-02] MEDS ORDERED: ENOXAPARIN SODIUM 40 MG/0.4 ML SYRINGE SUBCUT ONE (09:15)
--- NOTE | 2021-01-02 09:35 | NUR ---
MD DR AWYNE AT BEDSIDE, STAFF CALLED DIRECTOR OF NATIONAL SALES THRU A BLUE PHONE, NUMBER GIVEN [phone], STARTED ASKING QUESTIONS OVER THE PHONE.
[2021-01-02] MEDS ORDERED: NOREPINEPHRINE BITARTRATE 4 MG in NS 246 ML IV PRN (09:45)
--- NOTE | 2021-01-02 10:15 | NUR ---
WOUND EVALUATION: Late note for 01/02/2021 at 1015 secondary to patient care. Wound Consult received from Dr. Alcaraz. Thank you, Dr. Alcaraz, for the consult. Patient received in a Bet[place] Bed, awake, alert, Georgian speaking. Patient is unable to turn in bed independently. Jeovanny Score is a 14. Past Medical History: Cerebrovascular Accident five years ago, bedbound for the last two years, Hypertension, Hernia repair. Recent Labs: WBC 9.3, RBC 5.78, hemoglobin 16.9, hematocrit 50.6, BUN 19, creatinine 1.20, GFR 68, glucose 119, calcium 8.1. Microbiology: Blood culture results x2 in progress. Urine culture results in progress. Intrinsic factors that delay wound healing: N.P.O. status. Extrinsic factors that delay wound healing: Decreased mobility. Wound Assessment: 1. Sacral area: Healing wound of unknown etiology, present on admission. Wound bed has 100% pink tissue. No odor, no drainage. Periwound intact. Wound measures 0.9 cm x 0.5 cm. 2. Sacral area, Superior and Left Lateral to Site 1: Healing wound of unknown etiology, present on admission. Wound bed has 100% pink tissue. No odor, no drainage. Periwound intact. Wound measures 2.0 cm x 0.5 cm. Recommend: Cleanse wounds with normal saline. Apply moisture barrier cream to wounds and surrounding tissue. Cover with Sacral foam dressing. Perform wound care daily, and as needed for dressing soiling or dislodgement. Also recommend: Reposition patient [id number] only every 2 hours with pillow support and off-load pressure areas with pillows for pressure re-distribution. Offload, elevate and float bilateral heels with one pillow lengthwise under each extremity. Perform skin care and monitor skin integrity Q shift. Use moisture barrier cream on buttocks and other moisture susceptible areas QID and as needed for soiling. Place patient on a low air-loss mattress.
--- NOTE | 2021-01-02 10:20 | NUR ---
HYGIENE. PT ASKED HELP IN GOING TO THE BATHROOM, OFFERED BEDPAN, PT HAD MODERATE AMOUNT OF SOFT BM, GOOD PERINEAL CARE DONE, BOTTOM SHEET AND GOWN CHANGED, FOAM DRESSING TO SACRAL AREA.
--- NOTE | 2021-01-02 10:44 | NUR ---
TO CT SCAN DEPT. TRANSPORTED PT VIA GURNEY ATTACHED PT TO A PORTABLE SOD STRIPPER.
--- NOTE | 2021-01-02 11:10 | NUR ---
TO ICU. BROUGHT PT BACK TO ROOM 3.
--- NOTE | 2021-01-02 11:28 | NUR ---
PAGED FOR SWALLOW CITLALI CALLED GRAYSON FOR SWALLOW LEFT VOICEMAIL AT [phone]
--- NOTE | 2021-01-02 15:21 | NUR ---
PAGED DR JORGE LUIS WAYNE SPOKE TO FELICIA
--- NOTE | 2021-01-02 15:24 | NUR ---
POSITIVE B/C DR WAYNE RETURNED THE CALL AND MADE AWARE OF GRAM NEG RODS FROM ANAEROBIC BOTTLE, NO NEW ORDERS RECEIVED.
--- NOTE | 2021-01-02 17:16 | NUR ---
SPEECH THERAPIST. PT WILL BE SEEN TOMORROW PER GRAYSON.
--- NOTE | 2021-01-02 20:00 | NUR ---
AWAKE, ALERT. TAMAZIGHT SPEAKING. IN NO APPARENT DISTRESS. VSS. DENIES PAIN. SR.
[2021-01-02] MEDS: LEVOFLOXACIN IN DEXTROSE 5 % 100 ML IV SCH (20:19)
[2021-01-02] MEDS ORDERED: GENTAMICIN 100 mg/50 mL NS 100 ML IV ONE (20:59)
[2021-01-02] MEDS ORDERED: GENTAMICIN SULFATE 200 MG in NS 100 ML IV ONE (21:00)
--- NOTE | 2021-01-02 22:00 | NUR ---
INCONTINENT OF URINE. CLEANED. PARTIAL BATH GIVEN. 1 MOD SOFT BROWN STOOL DEFECATED. NATALIE CARE, BACK CARE, SKIN CARE, AND GROIN CARE GIVEN. PARTIAL LINEN CHANGE. ASSISTS WITH TURNING. RUDY PROC WELL.
[2021-01-03] VITALS (13 sets, daily range): BP systolic 98–149
--- NOTE | 2021-01-03 | NUR ---
AWAKE. TYLENOL GR ID GIVEN FOR TEMP 100.1 TEMPORAL ARTERY SCAN. ASSISTS WITH TURNING.
--- NOTE | 2021-01-03 02:00 | NUR ---
SLEPT INTERMITTENTLY. 0 DISTRESS.
--- NOTE | 2021-01-03 04:00 | NUR ---
AWAKE. TEMP BETTER.
[2021-01-03] MEDS: D5NS 1,000 ML IV SCH ×4 (04:17→19:57)
--- NOTE | 2021-01-03 05:00 | NUR ---
BOUTS OF CONFUSION. REORIENTED. 1 MODERATE SOFT BROWN STOOL DEFECATED. CLEANED. INCONTINENT OF URINE AND STOOL. CHG BATH GIVEN. BACK CARE, ORAL CARE, GROIN AND NATALIE CARE , SKIN CARE RENDERED. PARTIAL LINEN CHANGE. ASSISTS WITH TURNING. RUDY PROC WELL.
[2021-01-03 05:53] LABS: BASOPHILS % (AUTO) 0.9 % (0.0-2.0); EOSINOPHILS # (AUTO) 0.1 K/uL (0.0-0.4); EOSINOPHILS % (AUTO) 2.7 % (0.0-4.0); HEMATOCRIT 34.2 % (36-54); HEMOGLOBIN 11.7 g/dL (14.0-18.0); LYMPHOCYTES # (AUTO) 0.4 K/uL (1.0-5.5); LYMPHOCYTES % (AUTO) 16.7 % (20.5-51.5); MEAN CORPUSCULAR HEMOGLOBIN 29 pg (27-31); MEAN CORPUSCULAR HGB CONC 34 % (32-36); MEAN CORPUSCULAR VOLUME 86 fL (79.0-98.0); MONOCYTES # (AUTO) 0.1 K/uL (0.0-1.0); MONOCYTES % (AUTO) 6.5 % (1.7-9.3); NEUTROPHILS # (AUTO) 1.6 K/uL (1.8-7.7); NEUTROPHILS % (AUTO) 73.2 % (40.0-70.0); PLATELET COUNT (AUTO) 83 K/uL (130-430); RED BLOOD CELL COUNT(AUTO) 3.98 MIL/uL (4.2-6.2); RED CELL DISTRIBUTION WIDTH 13.9 % (9.0-15.0); WHITE BLOOD COUNT (AUTO) 2.2 K/uL (4.8-10.8)
--- NOTE | 2021-01-03 06:00 | NUR ---
DOZES ON AND OFF. SINUS CARLOS AT TIMES. REMAINS IN GUARDED CONDITION.
[2021-01-03] MEDS: PIPERACILLIN/TAZO 3.375/DEX-IS 50 ML IV SCH ×3 (06:06→17:44)
[2021-01-03 06:08] LABS: ALBUMIN 2.1 g/dL (3.4-4.8); CREATININE 0.73 mg/dL (0.55-1.30); POTASSIUM 3.1 mmol/L (3.5-5.1); TOTAL BILIRUBIN 0.6 mg/dL (0.0-1.0)
--- NOTE | 2021-01-03 07:37 | NUR ---
Opening Note Received bedside report from endorsing RN for continuation of care. Received patient awake and resting in bed, denies any pain or SOB at this time. No signs or symptoms of acute distress noted, respirations even and unlabored. Bed locked in lowest position, bed alarm on, and call light within reach. Fall and safety precautions in place. All needs met.
[2021-01-03] MEDS: ATORVASTATIN 20 MG TABLET PO SCH (08:05)
[2021-01-03] MEDS: ASPIRIN 81 MG TABLET(ECOTRIN) PO SCH (08:05)
[2021-01-03] MEDS: ENOXAPARIN SODIUM 40 MG/0.4 ML SYRINGE SUBCUT SCH (08:05)
--- NOTE | 2021-01-03 08:40 | NUR ---
Dr. Cm at bedside examining patient, new orders received.
[2021-01-03] MEDS ORDERED: POTASSIUM CHLORIDE 40 MEQ in NS 250 ML IV ONE (08:45)
--- NOTE | 2021-01-03 09:57 | NUR ---
Dr. Alcaraz in to see patient, new orders received.
--- NOTE | 2021-01-03 09:57 | NUR ---
Med-Surg Status Patient stable to transfer to med-surg unit. Patient will remain in ICU and be monitored under med-surg status until hospital room and bed become available.
[2021-01-03] MEDS ORDERED: LEVOFLOXACIN IN DEXTROSE 5 % 100 ML IV SCH (10:00)
--- NOTE | 2021-01-03 11:00 | NUR ---
Dietitian Recommendations *Recommend: advance diet per STENCILING MACHINE TENDER rec. Add ONS if PO is poor. *Consider alternative method of feeding pt is diet can not be advanced. Please see Nutritional Assessment for details MATHEW RD
--- NOTE | 2021-01-03 11:35 | NUR ---
Wound Care/BM Patient had large soft BM. Pericare done and bed linens changed. Wound care done per wound care guidelines. Patient cleaned, turned, and repositioned. Patient tolerated well.
--- NOTE | 2021-01-03 15:14 | NUR ---
Transfer to Med-Surg Patient transferred to med-surg unit room 114-A on hospital bed. Endorsed bedside report to Alexa SCHNEIDER using SBAR approach for continuation of care. Addendum: 01/03/21 at 1827 by Vidya Fuentes RN Disregard; incorrect time.
--- NOTE | 2021-01-03 16:14 | NUR ---
Swallow Evaluation Swallow eval being done at bedside by Yajaira speech pathologist.
--- NOTE | 2021-01-03 16:22 | NUR ---
S.T. SWALLOW EVAL SWALLOW EVAL COMPLETED. PT PRESENTS W/ FUNCTIONAL OROPHARYNGEAL SWALLOW W/ ADEQUATE BOLUS MANIPULATION AND NO S/S OF ASPIRATION. REC: MECH SOFT CHOPPED DIET. THIN LIQUIDS OK. NURSE KIERSTEN NOTIFIED.
--- NOTE | 2021-01-03 17:31 | NUR ---
Family Update Spoke with patient's family regarding patient status and plan of care. All questions answered and education provided.
--- NOTE | 2021-01-03 18:14 | NUR ---
Transfer to Med-Surg Patient transferred to med-surg unit room 114-A on hospital bed. Endorsed bedside report to Alexa RN using SBAR approach for continuation of care.
--- NOTE | 2021-01-03 18:15 | NUR ---
Pt Received Report given by MERCHANDISING PROFESSOR David, patient is resting in bed, stable, no signs or symptoms of respiratory distress. Patient is A&O x2, disoriented and confused. IV is infusing, no signs or symptoms of infiltration. Bed is in lowest position, fall and aspiration precautions are in place. Will continue to monitor.
--- NOTE | 2021-01-03 19:50 | NUR ---
INITIAL NOTE AT INITIAL ASSESSMENT, PATIENT IS RESTING IN BED, STABLE, NO SIGNS OF RESPIRATORY DISTRESS. PATIENT VERBALIZES NO PAIN. PLAN OF CARE FOR THE EVENING IS COMMUNICATED WITH THE PATIENT. PATIENT IS UNABLE TO DEMONSTRATE CORRECT USAGE OF CALL LIGHT AT THIS TIME DUE TO COGNITIVE IMPAIRMENT; FREQUENT ROUNDING WILL BE COMPLETED THROUGHOUT THE NIGHT TO MEET ALL PATIENT NEEDS. BED IS LOCKED, ALARMED, AND AT THE LOWEST LEVEL. FALL SAFETY EDUCATION PROVIDED. FALL, SAFETY, ASPIRATION, AND RESPIRATORY PRECAUTIONS WILL BE TAKEN THROUGHOUT THE SHIFT. Addendum: 01/05/21 at 0400 by Humble Chappell RN NOTE INTENDED FOR DIFFERENT TIME
[2021-01-03] MEDS: LEVOFLOXACIN IN DEXTROSE 5 % 100 ML IV SCH (19:57)
--- NOTE | 2021-01-03 19:57 | NUR ---
ATB PATIENT DUE ANTIBIOTIC INFUSED WITH IV LINE INTACT AND PATENT. VITAL SIGNS STABLE.
--- NOTE | 2021-01-03 21:55 | NUR ---
ROUNDS PATIENT WATCHING TV. NO DISTRESS NOTED. CALL LIGHT WITH IN REACH.
[2021-01-04 00:08] VITALS: BP_SYST 143
[2021-01-04] MEDS: PIPERACILLIN/TAZO 3.375/DEX-IS 50 ML IV SCH ×5 (00:10→23:10)
--- NOTE | 2021-01-04 00:10 | NUR ---
ATB/IV LINE PATIENT IV LINE OUT. NEW IV LINE STARTED ON RT HAND GAUGE #22 WITH GOOD BLOOD RETURN. DUE ANTIBIOTIC INFUSED. VITAL SIGNS STABLE. INCONTINENCE CARE DONE. ALL LINENS CHANGED.
--- NOTE | 2021-01-04 03:32 | NUR ---
ROUNDS PATIENT RESTING IN BED AWAKE. DENIES ANY PAIN. BREATHING UNLABORED ON ROOM AIR. BED ALARM ON. IVF INFUSING.
--- NOTE | 2021-01-04 04:54 | NUR ---
AM CARE/WOUND CARE INCONTINENCE CARE DONE. WOUND CARE DONE TO SACRAL WOUND ORDERED.
[2021-01-04] MEDS: D5NS 1,000 ML IV SCH ×3 (04:57→20:11)
--- NOTE | 2021-01-04 06:44 | NUR ---
CLOSING NOTES NO CHANGE IN PATIENT CONDITION .PATIENT NEEDS ATTENDED. BED IN LOWEST LOCKED POSITION. CALL LIGHT WITH IN REACH.
[2021-01-04 06:48] LABS: BASOPHILS % (AUTO) 0.7 % (0.0-2.0); EOSINOPHILS # (AUTO) 0.1 K/uL (0.0-0.4); EOSINOPHILS % (AUTO) 2.3 % (0.0-4.0); HEMATOCRIT 41.6 % (36-54); HEMOGLOBIN 14.1 g/dL (14.0-18.0); LYMPHOCYTES # (AUTO) 0.7 K/uL (1.0-5.5); LYMPHOCYTES % (AUTO) 23.3 % (20.5-51.5); MEAN CORPUSCULAR HEMOGLOBIN 29 pg (27-31); MEAN CORPUSCULAR HGB CONC 34 % (32-36); MEAN CORPUSCULAR VOLUME 85 fL (79.0-98.0); MONOCYTES # (AUTO) 0.2 K/uL (0.0-1.0); MONOCYTES % (AUTO) 7.9 % (1.7-9.3); NEUTROPHILS # (AUTO) 2.1 K/uL (1.8-7.7); NEUTROPHILS % (AUTO) 65.8 % (40.0-70.0); PLATELET COUNT (AUTO) 102 K/uL (130-430); RED BLOOD CELL COUNT(AUTO) 4.88 MIL/uL (4.2-6.2); RED CELL DISTRIBUTION WIDTH 13.8 % (9.0-15.0); WHITE BLOOD COUNT (AUTO) 3.1 K/uL (4.8-10.8)
[2021-01-04 08:06] VITALS: BP_SYST 144
[2021-01-04] MEDS: ASPIRIN 81 MG TABLET(ECOTRIN) PO SCH (08:24)
[2021-01-04] MEDS: ATORVASTATIN 20 MG TABLET PO SCH (08:24)
[2021-01-04] MEDS: ENOXAPARIN SODIUM 40 MG/0.4 ML SYRINGE SUBCUT SCH (08:27)
--- NOTE | 2021-01-04 08:30 | NUR ---
opening notes: patient alert awake x2 . kuwaiti speaking. respiration even and unlabored. lungs bilateral clear but diminished at the bases. abdomen soft and non distended. has iv access on the rt hand 322 [id number] at 150cc/hr nfusing on well. bed low position, alarmed and locked. call lights within reach. will continue to monitor patients status.
[2021-01-04 08:41] LABS: ALBUMIN 2.6 g/dL (3.4-4.8); CREATININE 0.86 mg/dL (0.55-1.30); POTASSIUM 3.5 mmol/L (3.5-5.1); TOTAL BILIRUBIN 0.5 mg/dL (0.0-1.0)
[2021-01-04 12:24] VITALS: BP_SYST 145
--- NOTE | 2021-01-04 14:00 | NUR ---
HAD BM AND NATALIE CARE DONE. AT THIS TIME.
[2021-01-04 16:31] VITALS: BP_SYST 144
--- NOTE | 2021-01-04 19:38 | NUR ---
HAD IV ANTIBIOTIC GIVEN ORDERED.
[2021-01-04 19:50] VITALS: BP_SYST 127
--- NOTE | 2021-01-04 19:50 | NUR ---
INITIAL NOTE AT INITIAL ASSESSMENT, PATIENT IS RESTING IN BED, STABLE, NO SIGNS OF RESPIRATORY DISTRESS. PATIENT VERBALIZES NO PAIN. PLAN OF CARE FOR THE EVENING IS COMMUNICATED WITH THE PATIENT. PATIENT IS UNABLE TO DEMONSTRATE CORRECT USAGE OF CALL LIGHT AT THIS TIME DUE TO COGNITIVE IMPAIRMENT; FREQUENT ROUNDING WILL BE COMPLETED THROUGHOUT THE NIGHT TO MEET ALL PATIENT NEEDS. BED IS LOCKED, ALARMED, AND AT THE LOWEST LEVEL. FALL SAFETY EDUCATION PROVIDED. FALL, SAFETY, ASPIRATION, AND RESPIRATORY PRECAUTIONS WILL BE TAKEN THROUGHOUT THE SHIFT. Addendum: 01/06/21 at 0351 by Humble Chappell RN SEIZURE PRECAUTIONS WILL ALSO BE TAKEN THROUGHOUT THE SHIFT.
[2021-01-04] MEDS ORDERED: GENTAMICIN 100 mg/50 mL NS 100 ML IV ONE (19:59)
[2021-01-04] MEDS: LEVOFLOXACIN IN DEXTROSE 5 % 100 ML IV SCH (20:11)
[2021-01-04] MEDS ORDERED: GENTAMICIN SULFATE 200 MG in NS 100 ML IV ONE (21:00)
--- NOTE | 2021-01-04 21:50 | NUR ---
HYGIENE CARE NOTE HYGIENE CARE IS PROVIDED AT THIS TIME, FRESH LINENS PROVIDED, AND PATIENT IS REPOSITIONED FOR COMFORT. PATIENT TOLERATED WELL. CALL LIGHT PLACED WITHIN REACH. BED IS LOCKED, ALARMED, AND AT THE LOWEST LEVEL.
--- NOTE | 2021-01-04 22:30 | NUR ---
CODE WORD "ROSLYN" NEEDED TO RECEIVE INFORMATION PATIENT'S POA GIDEON JIANG HAS CALLED REQUESTING THAT ONLY HERSELF AND HER SISTER DEREK JIANG BE ABLE TO CALL FOR ANY INFORMATION/ UPDATE ON PATIENT. THEY STATED THAT THERE WAS AN INCIDENT EARLIER TODAY WHERE SOME UNAUTHORIZED FAMILY MEMBERS (LUCIEN BARONE & MADHAVI) ATTEMPTED TO CALL [facility] AND ASK FOR INFORMATION ON THE PATIENT. GIDEON CONTEHANTIAGO HAS REQUESTED STAFF TO VERIFY HERSELF AND HER DEREK JIANG'S IDENTITY WITH CODE WORD "ROSLYN" OVER THE TELEPHONE BEFORE GIVING ANY INFORMATION ON THE PATIENT.
[2021-01-05 02:04] VITALS: BP_SYST 125
[2021-01-05] MEDS: D5NS 1,000 ML IV SCH ×5 (02:55→20:11)
[2021-01-05] MEDS: PIPERACILLIN/TAZO 3.375/DEX-IS 50 ML IV SCH ×3 (05:32→17:09)
[2021-01-05 06:54] LABS: BASOPHILS % (AUTO) 0.4 % (0.0-2.0); EOSINOPHILS # (AUTO) 0.1 K/uL (0.0-0.4); EOSINOPHILS % (AUTO) 1.6 % (0.0-4.0); HEMATOCRIT 38.2 % (36-54); LYMPHOCYTES % (AUTO) 22.4 % (20.5-51.5); MEAN CORPUSCULAR HEMOGLOBIN 29 pg (27-31); MEAN CORPUSCULAR HGB CONC 34 % (32-36); MEAN CORPUSCULAR VOLUME 86 fL (79.0-98.0); MONOCYTES # (AUTO) 0.3 K/uL (0.0-1.0); MONOCYTES % (AUTO) 6.5 % (1.7-9.3); NEUTROPHILS # (AUTO) 3.1 K/uL (1.8-7.7); NEUTROPHILS % (AUTO) 69.1 % (40.0-70.0); PLATELET COUNT (AUTO) 127 K/uL (130-430); RED BLOOD CELL COUNT(AUTO) 4.47 MIL/uL (4.2-6.2); RED CELL DISTRIBUTION WIDTH 14.3 % (9.0-15.0); WHITE BLOOD COUNT (AUTO) 4.4 K/uL (4.8-10.8)
--- NOTE | 2021-01-05 06:58 | NUR ---
CLOSING NOTE PATIENT SLEPT WELL THROUGHOUT THE SHIFT, NO SHORTNESS OF BREATH NOTED. AT THIS TIME, PATIENT IS RESTING IN BED, STABLE, NO SIGNS OF RESPIRATORY DISTRESS. CALL LIGHT IS WITHIN REACH. BED IS LOCKED, ALARMED, AND AT THE LOWEST LEVEL. FALL, SAFETY, AND RESPIRATORY PRECAUTIONS HAVE BEEN TAKEN THROUGHOUT THE SHIFT. WILL CONTINUE TO MONITOR UNTIL SHIFT REPORT IS GIVEN AT BEDSIDE TO AM NURSE. PATIENT HAS BEEN TURNED [id number] THROUGHOUT THE SHIFT.
[2021-01-05 07:56] VITALS: BP_SYST 143
--- NOTE | 2021-01-05 08:00 | NUR ---
Note Pt assisted in sitting up in bed with HOB at 75' to eat his breakfast (assisted with his breakfast by APPLIQUER). No SOB/resp distress or pain/discomfort noted at this time. IV in right hand intact and patent infusing IVF's well. Pt next to nurses' station for close observation for needs and care. Pt's bed in low position and bed alarm on. Call light within reach.
[2021-01-05 08:02] LABS: ALBUMIN 2.4 g/dL (3.4-4.8); CALCIUM 7.4 mg/dL (8.4-11.0); CREATININE 0.78 mg/dL (0.55-1.30); POTASSIUM 3.6 mmol/L (3.5-5.1); TOTAL BILIRUBIN 0.5 mg/dL (0.0-1.0)
[2021-01-05] MEDS: ATORVASTATIN 20 MG TABLET PO SCH (09:12)
[2021-01-05] MEDS: ASPIRIN 81 MG TABLET(ECOTRIN) PO SCH (09:12)
[2021-01-05] MEDS: ENOXAPARIN SODIUM 40 MG/0.4 ML SYRINGE SUBCUT SCH (09:17)
[2021-01-05 12:00] VITALS: BP_SYST 137
--- NOTE | 2021-01-05 12:07 | NUR ---
Nutrition F/U Admitting Diagnosis: Sepsis Medical History Comment: Pt w/: sepsis, UTI, Hx of CVA, bed bound for 2 yrs, HTN per MD notes. 01/05: MD notes: Bacteremia SARS-CoV-2 Ag Rapid 01/01 Negative Subjective Information: Pt continues w/ IV antibiotics for Bacteremia. Per EMR review, last BM 01/05 x2, abdomen is soft and nondistended w/ active bowel sounds. Pt was seen by speech therapist on 01/03 who noted pt w/ functional oropharyngeal swallow and recommended mechanical soft chopped diet. RD noted high blood pressure per office manager receptionist, pt w/ H/O HTN and may benefit from adding 2gm Na diet to current order for better blood pressure control. RD also reviewed deck specialist note on 01/02, pt w/ healing wound and may benefit from adding Sundar to help heal wounds. Current Diet Order/Nutrition Support: Mechanical soft chopped x 2 days Pertinent Medications: Lovenox, D5%/NS IV at 150ml/hr (612 kcal/day), Lipitor Pertinent Labs: 01/05: Na 141WNL, K 3.6WNL, BG 127H, BUN 9WNL, Cre 0.78WNL, WBC 4.4L Height: 5 feet 7.00 inches Weight: 119 pounds/ 53.490542 kilograms (01/03) -- stable Body Mass Index: 18.64 kg/m2 %IBW: 80 [place]/Adjusted Body Weight: 148#/ 67kg Skin Integrity Comment: Jeovanny scale: 15. orientation & mobility specialist note 01/02: 1. Sacral area: Healing wound of unknown etiology, present on admission. 2. Sacral area, Superior and Left Lateral to Site 1: Healing wound of unknown etiology, present on admission. No edema noted. Current % PO: Good (83% average of 3 meals on 01/04) Estimated Energy Expenditure (kcals/day) 4876-1687 (30-35 kcal/kg IBW for sepsis/wound healing) Estimated Protein Required (g/day) 100-134 (1.5-2 gm/kg IBW for sepsis/wound healing) Estimated Fluid Required (l/day) 1.7-2 (25-30 ml/kg IBW for Geriatric maintenance) Problem/Etiology/Signs/Symptoms Increased nutrient needs r/t metabolic demands AEB estimated calories and protein for sepsis and wound healing. (*modified) Inadequate oral intake r/t swallowing difficulty AEB a/w swallow eval and no diet order since admission. (*improved, now on diet) Expected Outcomes/Goals Monitor appetite and PO intake w/ goal of pt meeting more than 75% of estimated nutritional needs, labs trending WNL, normal GI function, skin integrity/wt maintenance. Dietitian Recommendations *Recommend: Mechanical soft chopped 2gm Na diet w/ Sundar BID. Follow Up High Risk: F/U in 2-3days
--- NOTE | 2021-01-05 12:15 | NUR ---
Dietitian Recommendations *Recommend: Mechanical soft chopped 2gm Na diet w/ Sundar BID. Please see Nutrition F/U note for details. MATHEW, RD
[2021-01-05 16:15] VITALS: BP_SYST 125
--- NOTE | 2021-01-05 18:30 | NUR ---
Note Pt stable lying in bed - no SOB/resp distress or pain/discomfort noted all shift. Pt was given hygiene care and bed bath all shift for urine and stool incontinence. Pt was checked on q1' and PRN all shft for needs and care. Pt was maintained with safety precautions all shift. IV in right hand intact and patent infusing IVF's well. Pt's bed in low position and bed alarm on all shift. Pt next to nurses' station for close observation for needs and care. Call light within reach. Dressing on sacral scratch was done.
[2021-01-05 19:45] VITALS: BP_SYST 146
--- NOTE | 2021-01-05 19:45 | NUR ---
INITIAL NOTE AT INITIAL ASSESSMENT, PATIENT IS RESTING IN BED, STABLE, NO SIGNS OF RESPIRATORY DISTRESS. PATIENT VERBALIZES NO PAIN. PLAN OF CARE FOR THE EVENING IS COMMUNICATED WITH THE PATIENT. PATIENT IS UNABLE TO DEMONSTRATE CORRECT USAGE OF CALL LIGHT AT THIS TIME DUE TO COGNITIVE IMPAIRMENT; FREQUENT ROUNDING WILL BE COMPLETED THROUGHOUT THE NIGHT TO MEET ALL PATIENT NEEDS. BED IS LOCKED, ALARMED, AND AT THE LOWEST LEVEL. FALL SAFETY EDUCATION PROVIDED. FALL, SAFETY, ASPIRATION, SEIZURE, AND RESPIRATORY PRECAUTIONS WILL BE TAKEN THROUGHOUT THE SHIFT.
[2021-01-05] MEDS: LEVOFLOXACIN IN DEXTROSE 5 % 100 ML IV SCH (20:11)
[2021-01-06] MEDS: PIPERACILLIN/TAZO 3.375/DEX-IS 50 ML IV SCH ×4 (00:01→17:54)
[2021-01-06 01:49] VITALS: BP_SYST 155
--- NOTE | 2021-01-06 03:29 | NUR ---
ENDORSEMENT OF CARE/ CLOSING NOTE PATIENT SLEPT WELL THROUGHOUT THE SHIFT, NO SHORTNESS OF BREATH NOTED. AT THIS TIME, PATIENT IS RESTING IN BED, STABLE, NO SIGNS OF RESPIRATORY DISTRESS. CALL LIGHT IS WITHIN REACH. BED IS LOCKED, ALARMED, AND AT THE LOWEST LEVEL. FALL, SAFETY, SEIZURE, ASPIRATION, AND RESPIRATORY PRECAUTIONS HAVE BEEN TAKEN THROUGHOUT THE SHIFT. WILL CONTINUE TO MONITOR UNTIL SHIFT REPORT IS GIVEN AT BEDSIDE TO AM NURSE.
--- NOTE | 2021-01-06 03:30 | NUR ---
TRANSFER OF CARE REPORT RECEIVED FROM DAYSHIFT NURSE. PATIENT RECEIVED IN BED, SLEEPING. NO S/S OF ACUTE DISTRESS. BREATHING EVEN AND UNLABORED. SAFETY AND SEIZURE PRECAUTIONS IN PLACE. CALL LIGHT WITH PATIENT. BED ALARM ON. WILL CONTINUE TO MONITOR.
[2021-01-06] MEDS: D5NS 1,000 ML IV SCH ×2 (05:25→12:08)
--- NOTE | 2021-01-06 06:29 | NUR ---
CLOSING NOTE PATIENT IN BED, AWAKE, NO S/S OF ACUTE DISTRESS. BREATHING IS EVEN AND UNLABORED. HOB RAISED. IVF INFUSING WELL, IV SITE IS PATENT, NO SIGNS OF INFILTRATION OR INFECTION. SEIZURE PADS ATTACHED TO SIDE RAIL. ALL NEEDS MET THROUGHOUT SHIFT. FALL, SAFETY, SEIZURE PRECAUTIONS MAINTAINED THROUGHOUT SHIFT. WILL CONTINUE TO MONITOR UNTIL PATIENT CARE IS ENDORSED TO ONCOMING DAYSHIFT NURSE.
--- NOTE | 2021-01-06 08:00 | NUR ---
OPENING NOTES: PATIENT ALERT AWAKE X 2. KNOWS WHERE HE AT. LEBANESE SPEAKING. RESPIRATION EVEN AND UNLABORED. ABDOMEN SOFT AND NON DISTENDED. IV ACCESS ON THE RT HAND #22. WITH D5NS AT 150CC/HR INFUSING ON WELL. INCONTINENT OF URINE AND BOWEL. BED LOW POSITION, ALARMED. AND LOCKED.
[2021-01-06] MEDS: ASPIRIN 81 MG TABLET(ECOTRIN) PO SCH (08:24)
[2021-01-06] MEDS: ATORVASTATIN 20 MG TABLET PO SCH (08:24)
[2021-01-06] MEDS: ENOXAPARIN SODIUM 40 MG/0.4 ML SYRINGE SUBCUT SCH (08:27)
[2021-01-06 08:44] VITALS: BP_SYST 165
[2021-01-06 12:16] VITALS: BP_SYST 133
[2021-01-06] MEDS ORDERED: LEVO500T89 PO (13:53)
[2021-01-06 16:08] VITALS: BP_SYST 134
--- NOTE | 2021-01-06 16:12 | NUR ---
BENITO CHARGE NURSE INFORMED PIETER SCHNEIDER CANNOT GO HOME ORDERED. FAMILY WANTS TO GO TO SNF. DR ROSANA ARRIAGA.
[2021-01-06 20:00] VITALS: BP_SYST 138
[2021-01-06] MEDS: LEVOFLOXACIN IN DEXTROSE 5 % 100 ML IV SCH (20:10)
--- NOTE | 2021-01-06 21:37 | NUR ---
RN RETURNED TELEPHONE CALL TO PT'S DAUGHTER DEREK WHO WANTED TO KNOW STATUS OF DISCHARGE. SHE STATED SHE WANTS HER FATHER TRANSFERRED TO A SNF, NOT HOME. DEREK WAS INFORMED DR. WAYNE ALREADY GAVE THE ORDER FOR TRANSFER TO A SNF AND A SPECIAL ASSEMBLIES SUPERVISOR WILL WORK ON THE TRANSFER. DEREK STATED SHE WILL CALL TOMORROW TO KNOW STATUS OF THE TRANSFER.
[2021-01-07] MEDS: PIPERACILLIN/TAZO 3.375/DEX-IS 50 ML IV SCH ×2 (00:28→05:51)
[2021-01-07 01:38] VITALS: BP_SYST 149
[2021-01-07] MEDS: D5NS 1,000 ML IV SCH (02:34)
--- NOTE | 2021-01-07 09:00 | NUR ---
STILL ON LOVENOX THERAPY. AWAITING FOR POSSIBLE D/C TO SNF. CAR COOPER MADE AWARE.
[2021-01-07] MEDS: ENOXAPARIN SODIUM 40 MG/0.4 ML SYRINGE SUBCUT SCH (09:34)
[2021-01-07] MEDS: ATORVASTATIN 20 MG TABLET PO SCH (09:34)
[2021-01-07] MEDS: ASPIRIN 81 MG TABLET(ECOTRIN) PO SCH (09:35)
[2021-01-07 09:39] VITALS: BP_SYST 162
--- NOTE | 2021-01-07 10:28 | NUR ---
PATIENT REFUSES TO HAVE AN IV ACCESS. IM DONE HE SAID IN [place]. NO OTHER COMPLAINED NOTED. NO IV ACCESS NOTED. ABLE TO TAKE MEDICATION WITH NO DIFFICULTY.
[2021-01-07 12:37] VITALS: BP_SYST 135
--- NOTE | 2021-01-07 13:05 | NUR ---
DCP notes: VALUE ENGINEER introduced self to patient who was awake and sitting up. VALUE ENGINEER asked patient about his upcoming discharge and asked if he had a SNF preference. Patient was trying to speak to VALUE ENGINEER , but there was a language barrier. VALUE ENGINEER gave patient her card and thanked patient. VALUE ENGINEER spoke to Rn Bri who stated patient speaks mongolian, but VALUE ENGINEER should consult with patients daughter listed on the face sheet. VALUE ENGINEER called daughter Debbie who stated patient alpesh come to her home as she has stairs and it is dangerous. On a recent occasion, patient was walking down her home stairs and almost fell down. Additionally, Debbie has a 2 year old with Autism. Debbie added patients other daughter, Sydney cannot care for patient at her home as she works a lot of hours. VALUE ENGINEER called Andrea Kumar, but the real estate services coordinator Addendum: 01/07/21 at 1405 by Yudy OSWALD VALUE ENGINEER faxd over the patients packet to Alona at [facility] for her review. Addendum: 01/07/21 at 1652 by Yudy OSWALD DCP Notes: MARGRET called Alona at [facility] for an update re. patient, . Alona had some clinical questions so VALUE ENGINEER transferred her to speak to Kia Gregory. Alona was then transferred back to VALUE ENGINEER and had more questions. Alona stated she needs to get authorization from patients insurance. Alona asked if patient will be needing skilled or penitentiary care, will this be vermin exterminator or short temp placement. VALUE ENGINEER will leave notes for CM in morning as placement is pending Ko Kumar's review.
[2021-01-07 15:13] VITALS: BP_SYST 136
--- NOTE | 2021-01-07 16:50 | NUR ---
SPOKE TO KELLI ADVERTISING SALES EXECUTIVE FROM [facility]. STILL REVIEWING THE CASE FOR POSSIBLE TRANSFER OR D/C .
--- NOTE | 2021-01-07 19:30 | NUR ---
OPENING NOTE PATIENT ALERT & AWAKE X 2. HUNGARIAN SPEAKING. RESPIRATION IS EVEN AND UNLABORED TO ROOM AIR. ABDOMEN SOFT AND NON DISTENDED. NO IV ACCESS AT THIS TIME. INCONTINENT OF URINE AND BOWEL. BED LOCKED IN THE LOW POSITION, ALARM ON. CALL LIGHT WITHIN REACH. SIDE RAILS PADDED. SAFETY, FALL, SEIZURE PRECAUTIONS ALL IN PLACE. WILL CONTINUE TO MONITOR.
[2021-01-07 20:00] VITALS: BP_SYST 156
[2021-01-07] MEDS: LEVOFLOXACIN IN DEXTROSE 5 % 100 ML IV SCH ×2 (20:56→22:01)
--- NOTE | 2021-01-07 22:00 | NUR ---
IV PLACEMENT: # 22 gauge angiocath placed to RFA. Use of asceptic technique. Opsite placed over site. Blood return noted. Flushed with 10cc of normal saline. No evidence of infiltration noted. Patient tolerated well.
[2021-01-08] VITALS (7 sets, daily range): BP systolic 127–136
--- NOTE | 2021-01-08 | NUR ---
RN ROUNDS PT VITAL SIGNS STABLE. NO S/S OF DISTRESS, PT SLEEPING. WILL CTM.
--- NOTE | 2021-01-08 06:41 | NUR ---
CLOSING NOTE PATIENT ALERT & AWAKE X 2. NEPALI SPEAKING. RESPIRATION IS EVEN AND UNLABORED TO ROOM AIR. ABDOMEN SOFT AND NON DISTENDED. IV ON RFA #22 SALINE LOCKED. INCONTINENT OF URINE AND BOWEL. BED LOCKED IN THE LOW POSITION, ALARM ON. CALL LIGHT WITHIN REACH. SIDE RAILS PADDED. SAFETY, FALL, SEIZURE PRECAUTIONS MAINTAINED. WILL CONTINUE TO MONITOR UNTIL CARE ENDORSED TO DAYSHIFT RN.
--- NOTE | 2021-01-08 08:00 | NUR ---
PATIENT ALERT & AWAKE X 2. NEW ZEALANDER SPEAKING. RESPIRATION IS EVEN AND UNLABORED TO ROOM AIR. VITALS WNL. ABDOMEN SOFT AND NON DISTENDED. IV ON RFA #22 SALINE LOCKED. INCONTINENT OF URINE AND BOWEL. BED LOCKED IN THE LOW POSITION, ALARM ON. CALL LIGHT WITHIN REACH. SIDE RAILS PADDED. SAFETY, FALL, SEIZURE PRECAUTIONS MAINTAINED. WILL CONTINUE TO MONITOR
[2021-01-08] MEDS: ASPIRIN 81 MG TABLET(ECOTRIN) PO SCH (09:19)
[2021-01-08] MEDS: ATORVASTATIN 20 MG TABLET PO SCH (09:19)
[2021-01-08] MEDS: ENOXAPARIN SODIUM 40 MG/0.4 ML SYRINGE SUBCUT SCH (09:21)
--- NOTE | 2021-01-08 12:35 | NUR ---
Nutrition F/U Admitting Diagnosis: Sepsis Medical History Comment: Pt w/: sepsis, UTI, Hx of CVA, bed bound for 2 yrs, HTN per MD notes. 01/05: notes: Bacteremia SARS-CoV-2 Ag Rapid 01/01 Negative Subjective Information: Pt seen in bed, was more awake and alert during this visit. Pt is [place] Citizen speaking only, he reported his appetite is okay. This RD provided samples of Sundar and handout for pt and explained that it is for wound healing. Pt w/ bacteremia, ID following and is a/w discharge to SNF. Per EMR review, last BM 01/08 x1, abdomen is soft and nondistended w/ active bowel sounds. Pt w/ good food intake (53% average of 5 days). Current diet and modular for wound healing remains appropriate. Current Diet Order/Nutrition Support: Mechanical soft chopped 2gm Na, Sundar BID x 3 days Pertinent Medications: Lovenox, Lipitor Pertinent Labs: 01/05: Na 141WNL, K 3.6WNL, BG 127H, BUN 9WNL, Cre 0.78WNL, WBC 4.4L --no new labs as of 01/08 Height: 5 feet 7.00 inches Weight: 119 pounds/ 53.049950 kilograms (01/03) -- stable Body Mass Index: 18.64 kg/m2 %IBW: 80 [place]/Adjusted Body Weight: 148#/ 67kg Skin Integrity Comment: Jeovanny scale: 15. community support specialist note 01/02: 1. Sacral area: Healing wound of unknown etiology, present on admission. 2. Sacral area, Superior and Left Lateral to Site 1: Healing wound of unknown etiology, present on admission. No edema noted. Current % PO: Good (75-100% average of 5 days) Estimated Energy Expenditure (kcals/day) 4910-6351 (30-35 kcal/kg IBW for sepsis/wound healing) Estimated Protein Required (g/day) 100-134 (1.5-2 gm/kg IBW for sepsis/wound healing) Estimated Fluid Required (l/day) 1.7-2 (25-30 ml/kg IBW for Geriatric maintenance) Problem/Etiology/Signs/Symptoms Increased nutrient needs r/t metabolic demands AEB estimated calories and protein for sepsis and wound healing. (*modified) Inadequate oral intake r/t swallowing difficulty AEB a/w swallow eval and no diet order since admission. (*improved, now on diet) Expected Outcomes/Goals Monitor appetite and PO intake w/ goal of pt meeting more than 75% of estimated nutritional needs, labs trending WNL, normal GI function, skin integrity/wt maintenance. Dietitian Recommendations *Recommend continue: Mechanical soft chopped 2gm Na diet w/ Sundar BID. Follow Up High Risk: F/U in 2-3days
--- NOTE | 2021-01-08 12:39 | NUR ---
Dietitian Recommendations *Recommend continue: Mechanical soft chopped 2gm Na diet w/ Sundar BID. Please see Nutrition F/U note for details. MATHEW, RD
--- NOTE | 2021-01-08 12:45 | NUR ---
CM note: updated clinicals to Charlotte/Yusuf, the pt is not approved for skilled . The pt is bed bound, and IV abx can be given at home. Dr Alcaraz made aware, he ordered pt may go home with PO abx. CM is still waiting for the dc order.
--- NOTE | 2021-01-08 13:00 | NUR ---
CM NOTE: discussed dcp with markus/Debbie for [place] : that the pt is cleared for a halfway care facility or to home with PO antibiotic. Dtrs stated , [facility] is accepting the pt. I called Samara/field coordinator, she wants clinical and will call back with decision. irlanda Mejia to process the referral order.
--- NOTE | 2021-01-08 13:25 | NUR ---
Discharge Planning: DCP faxed pt referral to [facility] (f [phone] p [phone]) DCP to follow up. Addendum: 01/08/21 at 1554 by Gerson Lau RN [facility] Samara/[facility] [phone]. >> markus Lewis was notified , she agreed with the transfer today.
--- NOTE | 2021-01-08 15:56 | NUR ---
CM Note: Per Samara/[place], the pt is accepted to room 108, RN to report # [phone]. markus Lewis was notified, she agreed with the transfer today. Transportation: The insurance does not cover, since the pt is going to the snf under senior living care. Debbie will talk to her brother for pick pack worker vs non medical gurney transport. Addendum: 01/08/21 at 1640 by Gerson Lau RN Debbie called back , she agreed with the nonmedical gurney transport . Xavier at [facility] will be calling Debbie to secure the payment. automatic machines supervisor ETA is between 7-8 pm. -- WYATT Damian made aware.
--- NOTE | 2021-01-08 17:13 | NUR ---
>> Tyler Diaz is the accepting md at [facility]. -- WYATT Damian made aware.
[2021-01-08] MEDS: LEVOFLOXACIN IN DEXTROSE 5 % 100 ML IV SCH (18:13)
--- NOTE | 2021-01-08 18:45 | NUR ---
PATIENT ALERT & AWAKE X 2. BURMESE SPEAKING. RESPIRATION IS EVEN AND UNLABORED TO ROOM AIR. BED LOCKED IN THE LOW POSITION, ALARM ON. CALL LIGHT WITHIN REACH. SIDE RAILS PADDED. SAFETY, FALL, SEIZURE PRECAUTIONS MAINTAINED. WILL ENDORSE TO NEXT SHIFT
--- NOTE | 2021-01-08 21:40 | NUR ---
TRANSFER Patient is awake, aox2, macedonian speaking, no distress noted, IV line removed to right forearm, no bleeding noted, vital signs stable. Report given to medic personnel, patient left with no belongings.
== END 2021-01-08 20:15 | DRG 720 ==
LOC: SED 20:38 → STU 23:25 → SIC 01-02 08:28 → SMU 01-03 18:08
PROVIDERS: ADMIT Internal Medicine Hospice and Palliative Medicine; ATTEND Internal Medicine Hospice and Palliative Medicine
DX: A41.9 Sepsis, unspecified organism (principal); R65.21 Severe sepsis with septic shock; R53.2 Functional quadriplegia; N12 Tubulo-interstitial nephritis, not specified as acute or chronic; I10 Essential (primary) hypertension; Z20.822 Contact with and (suspected) exposure to COVID-19; E78.00 Pure hypercholesterolemia, unspecified; I69.354 Hemiplegia and hemiparesis following cerebral infarction affecting left non-dominant side; Z74.01 Bed confinement status; Z87.440 Personal history of urinary (tract) infections
CPT/HCPCS: 36415; 70450-TC; 71045; 76376; 80053; 81000; 82550; 82553; 83605; 84484; 85025; 87040-TC; 87086; 92610-GN; 93005; 96361; 96365; 99291; G0378; J0696; J1580; J1650; J1956; J2543; J3370; J3480; J7042; J7050; J7060; J7120